=== PATIENT | male | born 1960 | race Caucasian/White ===

== ENCOUNTER 2021-12-30 11:07 | Outpatient (CLI) | payer OTHER, SELFPAY ==
--- OUTSIDE RECORDS SUMMARY | 2021-12-30 08:24 | XMS_ITS | Encounter Summary ---
:1960 Author Reason for Visit Frequency/Urgency of Urination; New Nadia ent Visit Assessment and Plan Assessment Note 60 year old male with benign prostatic hyperplasia with lower urinary tract symptoms 1. Lower urinary tract symptoms ? urinalysis, dipstick 2. Screening for malignant neoplasm of prostate ? prostate specific Ag, serum or plasma Discussion Note Benign prostatic hyperplasia with lower urinary tract symptoms: I had a long discussion with the patient regarding his symptom severity and his findings from both his imaging and cystoscopy. We first discussed continued medical the rapy with alpha-blockade with or without the addition of finasteride 5 mg daily. We discussed expectations in terms of symptom improvement with combination medical therapy as outlined by the MTOPS trial. We then discussed minimally invasive pro cedures done in the office under local anesthesia or monitored anesthesia care in the operating room, notably the Rezum, Urolift, and iTind procedures. We discussed the technical aspects of deirdre bardales Rezum procedure. I informed him this procedure is done in the office under a clayton-prostatic block. We then discussed risks such as bleeding, urinary tract infec tion, injury to the bladder/urethra/sphi ncter, risk of need for retreatment, and postoperative urinary retention. We also discussed it is not uncommon for patients to have worsening irritative voiding s ymptoms for 3-4 weeks following the proc edure. We discussed that a temporary catheter would be left in place following the procedure. We discussed expectations in terms of ou tcomes as outlined by recent 5-year data including a 47% reduction in IPSS and 43% improvement in [id number] measures as well as expected surgical retreatment rates (4.4%). We then discussed the Urolift procedure. This is similarly done under a clayton- prostatic block. We did discuss technical limitations and exclusionary criteria including presence of a median lobe and gland size limitations. We discussed the Urol ift implants are permanent. We covered the risks as well including bleeding, infection, expected post-procedural irritative symptoms, need for retreatment, and injury to surrounding structures. We discussed expectations in terms of ou tcomes as outlined by recent 5-year data including a 36% reduction in IPSS and expected retreatment rate (13.6%). We then touched on the iTind procedure. We discussed 3-year outcomes regarding peak flow rates, bladder emptying, and durability. We discussed the device would be placed under monitored anesthetic care and that he would have a string coming out through the urethra. The device would then be removed in the office after 1 week's time. We discussed that none of these procedur es has been demonstrated to cause de rui erectile dysfunction or ejaculatory dysfunction. We then discussed surgical outlet proced ures done under anesthesia including bi- polar transurethral resection of prostate and transurethral laser vaporization of prostate We discussed the technical aspects of th aries two procedures and that ultimately the goal is the same. We discussed equivalency of the procedures as outlined by the [place] trial. We then discussed the as sociated risks including bleeding requir ing transfusion, urinary tract infection, injury to the bladder/ureteral orifices/urinary sphincter, urethral stricture formation, anesthetic risks (CVA/DVT/PE/SD ), postoperative urinary retention, and expected durability of treatment with anticipated retreatment rate. He would like to think on this and will let me know what he would like to do. Patient educational handouts: No information available. Plan of Care Reminders Provider Appointments None recorded. ? ? Lab Urinalysis, Dipstick 11/20/2021 [facility] ? Prostate Specific Ag, 11/20/2021 [facility] Serum or Plasma Lab Referral None recorded. ? ? Procedures None recorded. ? ? Surgeries None recorded. ? ? Imaging None recorded. ? ? Medications Name Start Date ? ? amlodipine 10 mg-atorvastatin 10 mg tablet ? 10mg/10mg 1/day amlodipine 5 mg tablet ? TAKE 1 TABLET BY MOUTH EVERY DAY atorvastatin 10 mg tablet ? TAKE 1 TABLET BY MOUTH EVERY DAY AT BEDTIME levothyroxine ? 175mcg 1/day levothyroxine 150 mcg tablet ? TAKE 1 TABLET BY MOUTH EVERY OTHER DAY ALTERNATING WI TH 175MCG TABS levothyroxine 175 mcg tablet ? TAKE 1 TABLET BY MOUTH EVERY OTHER DAY ALTERNATING WI TH 150MCG TABS metoprolol succinate ER 25 mg tablet,extended release 24 hr ? TAKE 1 TABLET BY MOUTH EVERY DAY prednisone 20 mg tablet ? TAKE 1 TABLET BY MOUTH TWICE A DAY tamsulosin 0.4 mg capsule ? TAKE 1 CAPSULE BY MOUTH EVERY DAY warfarin 10 mg tablet ? 10mg 1/day Medications Administered None recorded. Vitals Height Weight BMI 6 ft 235 lbs 31.9 kg/m2 Results Lab Results Date Name Specimen Result Interpretation Description Value Range Status Address ? 11/20/2021 Urinalysis, UR ? Color yellow yellow Final [place] Dipstick [facility]: [address] [address], [place] ? ? UR ? Appearance clear clear Final [place] [facility]: [address] [address], [place] ? ? UR ? Glucose negative negative Final [place] [facility] mg/dL mg/dL [facility]: [address] [place] [address], [place] ? ? UR ? Bilirubin negative negative Final [place] [facility]: [address] ? ? UR ? Ketones negative negative Final [place] [facility] mg/dL mg/dL [facility]: [address] ? ? UR ? Sp. [place] >=1.030 1.010-1.0 Final [place] [facility]: [address] ? ? UR ? pH -[facility] 5.0 5.0-8.0 Final [place] [facility]: [address] ? ? UR ? Protein negative negative Final [place] [facility] mg/dL mg/dL [facility]: [address] [address], [place] ? ? UR ? Urobilinogen 0.2 normal Final [place] [facility]: [address] [address], [place] ? ? UR ? Nitrites negative negative Final [place] [facility]: [address] [address], [place] ? ? UR ABNORMAL Blood trace-int negative Final [place] [facility] act [facility]: [address] ? ? UR ? Leukocytes negative negative Final [place] [facility]: [address] [address], [place] ? ? UR ? Performed by aaron Pennington ? Final [place] [facility]: [address] [facility], [place] ? ? UR ? Total Urine 40 /mL ? Final [place] Volume (mL) [facility]: [address] [facility], [place] 11/20/2021 Prostate BLDV ? PSA, Total 3.66 0.00-4.00 Fin al [place] Specific Ag, NG/mL NG/mL Urol ogy - Serum or [facility] Plasma Lab: [address] [facility], [place] Allergies Code Code System Name Reaction Severity Onset 2230 RxNorm Cephalexin ? ? ? Notes: Sulfa Problems Name Status Onset Date Source ? Juan Hematuria Active 09/07/2018 History Increased Frequency of Urination Active 09/07/2018 History Finding of Desire for Urination Active 09/07/2018 History Procedures Date Name Performed by ? 09/22/2018 Cystoscopy Information not avai lable Notes: 09/22/2018 - CYSTOSCOPY 09/22/2018 Us Urine Capacity Measure Information no t available Notes: 09/22/2018 - US URINE CAPACITY MEASURE 09/07/2018 Us Urine Capacity Measure Information no t available Notes: 09/07/2018 - US URINE CAPACITY MEASURE 04/09/2017 Prp I/sarah Init Reduc >5 Yr Information not available Notes: 04/09/2017 - PRP I/SARAH INIT RE KEARA >5 YR 12/23/2014 Colonoscopy Thru Stoma Spx Information n ot available Notes: 12/23/2014 - COLONOSCOPY THRU S ANDRIY SPX ? Hernia Repair W/mesh Information not josé miguel ilable Notes: Hernia Repair ? Removal of Sperm Duct(s) Information not available Notes: Vasectomy Notes: Other surgeries: Us urine capac ity measure, Us urine capacity measure, Colonoscopy thru stoma spx and Prp i/sarah init reduc >5 yr HN - Patient indicated: Prp i/sarah init reduc >5 yr is not accurate. Vaccine List Vaccine Type COVID-19 (SARS-COV-2) vaccine, unspecifi ed 07/19/2021 influenza, unspecified formulation 02/04/2021 Social History Tobacco Smoking Status Never Smoker What is your level of alcohol consumption? Occasional Marital status Has tobacco cessation counseling been provided? Y Do you or have you ever used smokeless tobacco? Never used s mokeless tobacco On what date was tobacco cessation counseling 11/20/2021 provided? How much tobacco do you chew? none What was the date of your most recent tobacco 11/20/2021 screening? Do you or have you ever used e-cigarettes or Never used elec tronic cigarettes vape? Do you or have you ever used any other forms of N tobacco or nicotine? What is your level of caffeine consumption? Moderate Do you use any illicit or recreational drugs? N Race White What is your relationship status? Family History Relation Problem Onset Age of Age Notes Mother Family history of cancer of (No Information) N/A (No Notes) colon Father Family history of prostate 45 N/A ( No Notes) cancer Functional Status Unknown. Past Encounters 11/20/2021 Lower Urinary Tract Symptoms; Screening for Malignant Neoplasm of Prostate Theodore Hercules MD: [address] [place] [address], [address], [place] [address], Ph. History of Present Illness Note: <div>This is a 60 year old male who is here for the evaluation and management of benign prostatic hyperplasia with lower urinary tract symptoms.</div><div>
</div><div>He has been struggling with worsening urgency and frequency for the last 5 years.</div><div>This is particularly bothersome at night.</div><div>He denies gross hematuria.</div><div>There is no history of recurrent urinary tract infections.</div><div>There is no history of urinary retention.</div><div>He is currently taking tamsulosin 0.4 mg daily and saw krystian.</div><div>He notices very mild benefit from this.</div> <div>
</div><div>He has a history of gross hematuria in 2018.</div><div>He underwent an office cystoscopy with Dr. Nieto in 2018 which showed bilobar hyperplasia without an elevated bladder neck.</div><div>Prostate volume: ~40 mL.</div><div>
</div><div>He is participating in prostate cancer screening.</div><div>His most recent prostate specific antigen was 2.98 ng/mL (10/12/2017)</div> Review of Systems ? Comprehensive General Adult ROS Reported By: Patient Cardiovascular: Cardiovascular: no chest [place] n, no palpitations Respiratory: Respiratory: no cough, no sh ortness of breath Gastrointestinal: Gastrointestinal: no abdomin al pain, no nausea, no vomiting, no constipation, no GERD; no fr equent diarrhea Genitourinary: Genitourinary: no difficulty urinating, urinary loss of control; no testicular: pain, no testicu lar: lump, no penile: lesion, no dysuria, no change in urinar y stream, no hematuria, incontinence, Physical Exam ? Notes: <div>General: Well nourished . Appears in good health. No acute distress.</div><div>Neuro: A wake, alert, and oriented x 3. No focal neurologic signs. Motor function and se nsation grossly intact.</div><div>Psych: Mood is appropriate. Good judgement. </div><div>Lungs: No dyspnea.</div><div>Abdomen: Soft, not distended</div><di v>Genitalia: Normal circumcised penis. No lesions. The meatus is orthotopic in location and located at the tip of the glans. Scrotum is healthy and well developed. The testis are down. There are no masses. There is no tenderne ss. The vasa are palpable bilaterally.</div><div>Digit al rectal examination: 40 grams, smooth</div><div>Extremities : Warm and well perfused. Moves all four extremities equally.</div><d iv>Skin: No edema.</div>
--- OUTSIDE RECORDS SUMMARY | 2021-12-30 08:24 | XMS_ITS ---
:1960 Author Care Team Providers Name Role Phone Carlita Herculesnaheed Dolan Primary Care Provider Unavailable Allergies Code Code System Name Reaction Severity Status Onset 2230 RxNorm Cephalexin ? ? Active ? Notes: Sulfa Medications Name Status Start Date Stop Date ? ? amlodipine 10 mg-atorvastatin 10 mg tablet Active ? Not available 10mg/10mg 1/day amlodipine 5 mg tablet Active ? Not avail able TAKE 1 TABLET BY MOUTH EVERY DAY atorvastatin 10 mg tablet Active ? Not av ailable TAKE 1 TABLET BY MOUTH EVERY DAY AT BEDTIME levothyroxine Active ? Not available 175mcg 1/day levothyroxine 150 mcg tablet Active ? Not available TAKE 1 TABLET BY MOUTH EVERY OTHER DAY ALTERNATING WITH 175MCG TABS levothyroxine 175 mcg tablet Active ? Not available TAKE 1 TABLET BY MOUTH EVERY OTHER DAY ALTERNATING WITH 150MCG TABS metoprolol succinate ER 25 mg tablet,extended release 24 hr Acti ve ? Not available TAKE 1 TABLET BY MOUTH EVERY DAY prednisone 20 mg tablet Active ? Not avai lable TAKE 1 TABLET BY MOUTH TWICE A DAY tamsulosin 0.4 mg capsule Active ? Not av ailable TAKE 1 CAPSULE BY MOUTH EVERY DAY warfarin 10 mg tablet Active ? Not availa ble 10mg 1/day Problems Name Status Onset Date Source ? [...] init reduc >5 yr is not accurate. Results Lab Results Date Name Specimen Result Interpretation Description Value Range Status Address ? 11/20/2021 Urinalysis, UR ? Color yellow yellow Final [place] [facility] [facility]: [address] [address], [place] ? ? UR ? Appearance clear clear Final [place] [facility]: [address] [address], [place] ? ? UR ? Glucose negative negative Final [place] [facility] mg/dL mg/dL [facility]: [address] [address], [place] ? ? UR ? Bilirubin negative negative Final [place] [facility]: [address] [address], [place] ? ? UR ? Ketones negative negative Final [place] [facility] mg/dL mg/dL [facility]: [address] [address], [place] ? ? UR ? Sp. [place] >=1.030 1.010-1.0 Final [place] [facility]: [address] [address], [place] ? ? UR ? pH -[facility] 5.0 5.0-8.0 Final [place] [facility]: [address] [address], [place] ? ? UR ? Protein negative negative Final [place] [facility] mg/dL mg/dL [facility]: [address] [address], [place] ? ? UR ? Urobilinogen 0.2 normal Final [place] [facility]: [address] [address], [place] ? ? UR ? Nitrites negative negative Final [place] [facility]: [address] [address], [place] ? ? UR ABNORMAL Blood trace-int negative Final [place] [facility]: [address] [address], [place] ? ? UR ? Leukocytes negative negative Final [place] [facility]: [address] [place] [address], [place] ? ? UR ? Performed by aaron Pennington ? Final [place] [facility]: [address] [place] [address], [place] ? ? UR ? Total Urine 40 /mL ? Final [place] Volume (mL) [facility]: [address] [place] [address], [place] 11/20/2021 Urinalysis, ? U-WBC 0 - 2 0 - 2 Final [place] Microscopic [hpf] [hpf] Urol[facility] - [facility]: [address] [place] [address], [place] ? ? ? U-RBC 0 - 2 0 - 2 Final [place] [hpf] [hpf] [facility]: [address] [place] [address], [place] ? ? ? Bacteria negative negative Final [place] [hpf] [hpf] [facility]: [address] [place] [address], [place] ? ? ? Squamous Epi negative negative, Final [place] /lpf small [facility]rology - /lpf [facility]: [address] [place] [address], [place] 11/20/2021 Prostate BLDV ? PSA, Total 3.66 0.00-4.00 Fin al [place] Specific Ag, NG/mL NG/mL [facility] - Serum or [facility]: [address] [place] [address] Past Encounters 11/20/2021 Lower Urinary Tract Symptoms; Screening for Malignant Neoplasm of Prostate Theodore Hercules MD: [address] [place] [address], [facility] [address], [place] [address], Ph. Social History Tobacco Smoking Status Never Smoker Vaccine List Vaccine Type COVID-19 (SARS-COV-2) vaccine, unspecifi ed 07/19/2021 influenza, unspecified formulation 02/04/2021 Plan of Care Reminders Provider Appointments None recorded. ? ? Lab None recorded. ? ? Referral None recorded. ? ? Procedures None recorded. ? ? Surgeries None recorded. ? ? Imaging None recorded. ? ? Vitals Height Weight BMI 6 ft 235 lbs 31.9 kg/m2
[2021-12-30 13:53] LABS: Cholesterol* 199 mg/dL (90-199)
[2021-12-30 13:54] LABS: HDL Cholesterol* 59 mg/dL (>=40); LDL Cholesterol Calculated 125 mg/dL (<100); Triglycerides* 76 mg/dL (40-149)
[2021-12-30 14:14] LABS: PSA Screen* 3.83 ng/mL (0.10-4.00)
[2022-01-02 12:50] LABS: Albumin* 4.2 g/dL (3.3-5.0)
[2022-01-02 12:53] LABS: Alkaline Phosphatase* 39 U/L (40-150); Aspartate Amino Transferase* 44 U/L (12-35); Bilirubin Direct* 0.3 mg/dL (0.0-0.5); Bilirubin Total* 0.8 mg/dL (0.1-1.5); Total Protein* 7.3 g/dL (6.0-8.3)
[2022-01-02 12:54] LABS: Alanine Aminotransferase* 43 U/L (4-50)
== END 2021-12-30 11:08 | disposition home or self-care (01) ==
PROVIDERS: PCP Family Medicine; Visit Provider Family Medicine
DX: Z00.00 Encounter for general adult medical examination without abnormal findings (principal); E78.5 Hyperlipidemia, unspecified; Z12.5 Encounter for screening for malignant neoplasm of prostate; Z13.29 Encounter for screening for other suspected endocrine disorder
CPT/HCPCS: 80061; 80076; 84153; 84443

== ENCOUNTER 2022-02-25 19:32 | Outpatient (CLI) | payer OTHER, SELFPAY ==
--- OUTSIDE RECORDS SUMMARY | 2022-02-25 19:34 | XMS_ITS | Clinical Summary ---
:1960 Author Organization [facility] [place] [address] Care Team Providers Name Role Phone Gian Barron MD Primary Care Provider Allergies Active Allergy Reactions Severity Noted Date Comments Sulfa (Sulfonamide Antibiotics) Rash 9 Medications Medication Sig Dispensed Refills Start Date End Date Status metoprolol succinate Take 1 tablet by 90 tablet 3 02/15/2019 Active (TOPROL XL) 25 mg mouth once Sustained-Release daily. tabletIndications: Thoracic aortic aneurysm without rupture levothyroxine Take 1 tablet by 0 04/07/2019 Active (SYNTHROID) 175 mcg mouth before tablet breakfast. tamsulosin (FLOMAX) 0.4 Take 1 capsule 0 04/07/2019 Active mg capsule by mouth once daily after a meal. atorvastatin (LIPITOR) Take 10 mg by 4 02/23/2019 Active 10 mg tablet mouth at bedtime. amLODIPine (NORVASC) 5 Take 1 tablet by 90 tablet. 0 1 Active mg tabletIndications: mouth once Thoracic aortic daily. Needs [facility] aneurysm without appt for further rupture refills levothyroxine Take 150 mcg by 0 05/07/2020 Active (SYNTHROID) 150 mcg mouth once tablet daily. warfarin (COUMADIN) 10 Based in INR 0 02/21/2021 Active mg tablet Active Problems Problem Noted Date Adenomatous colon polyp 04/12/2019 Overview: Colonoscopy 04/2019 polyp, repeat in 5 ye ars Social History Tobacco Use Types Packs/Day Years Used Date Never Smoker Smokeless Tobacco: Never Used Alcohol Use Standard Drinks/Week Comments Yes 0 (1 standard drink = 0.6 oz pure alcoho l) occ. Alcohol Habits Answer Date Recorded How often do you have a drink containing alcohol? Not asked How many drinks containing alcohol do you have on a typical Not asked day when you are drinking? How often do you have six or more drinks on one occasion? No t asked Comment: occ. 02/21/2021 Sex Assigned at Date Recorded Male 03/15/2021 1:47 PM [employer] Obstetrics History Last Filed Vital Signs Vital Sign Reading Time Taken Comments Blood Pressure 120/84 02/25/2021 8:42 AM [employer] Pulse 72 02/25/2021 8:42 AM [employer] Temperature - - Respiratory Rate - - Oxygen Saturation 96% 02/25/2021 8:42 AM [employer] Inhaled Oxygen Concentration - - Weight 108.4 kg (239 lb) 02/25/2021 8:42 AM [employer] Height 182.9 cm (6') 02/25/2021 8:42 AM [employer] Body Mass Index 32.41 02/25/2021 8:42 AM [employer] Plan of Treatment Upcoming Encounters Date Type Specialty Care Team Description 03/26/2022 Orders Only 03/26/2022 Office Visit Cesario Olguin MD [address] [place] [address] [phone] (Wo rk) Health Maintenance Due Date Last Done Comments Tdap 12/23/1970 Depression screening for age 12+ 1971 HIV for age 15-65 12/23/1974 Hepatitis C screening for age 18-79 12/23/1977 Tetanus booster 1979 Lipids for age 45-75 12/23/2004 Zoster (shingles) series for age 50+ 12/23/2009 (1 of 2) COVID-19 vaccine series (4 - Booster 04/04/2021 02/07/2021, 07/14/2020, for Pfizer series) 06/23/2020 Influenza for age 50-64 12/05/2021 BMI (ht and wt on same day) for age 1102/25/2022 02/25/2021, 04/15/2019 18+ Colonoscopy through age 75 04/07/2024 04/07/2019, 0 Results Not on filefrom Last 3 Months Insurance Payer Benefit Plan / Subscriber ID Effective Dates Phone Addre ss Type Group [employer] [id number] 2006-Susan [id number] t [place] [id number] [address] [employer] Retail Self 1960 [id number] (Home) [place] [address] Care Teams Spinal Surgeon Relationship Specialty Start Date End Date Gian Barron MD PCP - General Family Practice 09/14/[address] [place] [address]
--- OUTSIDE RECORDS SUMMARY | 2022-02-25 19:34 | XMS_ITS ---
:1960 Author Care Team Providers Name Role Phone Carlita Herculesncer Magdaleno Primary Care Provider Unavailable Allergies Code Code [...] mg tablet Active ? Not av ailable 10 MG ORALLY EVERY DAY AT BEDTIME ciprofloxacin 500 mg tablet Active ? Not available TAKE 1 TABLET BY MOUTH NEEDED (1 HR PRIOR TO REZUM PROCEDURE ) diazepam 5 mg tablet Active ? Not availab le TAKE 1 TABLET BY MOUTH NEEDED (1 HR PRIOR TO REZUM PROCEDURE ) levothyroxine Active ? Not available 175mcg 1/day levothyroxine 150 mcg tablet Active ? Not available TAKE 1 TABLET BY MOUTH EVERY OTHER DAY ALTERNATING WITH 175 MCG DOSE levothyroxine 175 mcg tablet Active ? Not available TAKE 1 TABLET BY MOUTH EVERY OTHER DAY ALTERNATING WITH 150 MCG metoprolol succinate ER 25 mg tablet,extended release 24 hr Acti ve ? Not available TAKE 1 TABLET BY MOUTH EVERY DAY prednisone 20 mg tablet Active ? Not avai lable TAKE 1 TABLET BY MOUTH TWICE A DAY tamsulosin 0.4 mg capsule Active ? Not av ailable TAKE 1 CAPSULE BY MOUTH EVERY DAY warfarin 10 mg tablet Active ? Not availa ble TAKE 1 TABLET BY MOUTH EVERY DAY Problems Name Status Onset Date Source ? [...] [facility]: [address] [address], [place] ? ? UR ? Appearance clear clear Final [place] [facility]: [address] [address], [place] ? ? UR ? Glucose negative negative Final [place] [facility] mg/dL mg/dL [facility]: [address] [address], [place] ? ? UR ? Bilirubin negative negative Final [place] [facility]: [address] [address], [place] ? ? UR ? Ketones negative negative Final [place] [facility] mg/dL mg/dL [facility]: [address] [address], [place] ? ? UR ? Sp. [place] >=1.030 1.010-1.0 Final [place] [facility]: [address] [address], [place] ? ? UR ? pH -[facility] 5.0 5.0-8.0 Final [place] [facility]: [address] [address], [place] ? ? UR ? Protein negative negative Final [place] [facility] mg/dL mg/dL [facility]: [address] [address], [place] ? ? UR ? Urobilinogen 0.2 normal Final [place] [facility]: [address] [address], [place] ? ? UR ? Nitrites negative negative Final [place] [facility]: [address] [facility], [place] ? ? UR ABNORMAL Blood trace-int negative Final [place] [facility]: [address] [facility], [place] ? ? UR ? Leukocytes negative negative Final [place] [facility]: [address] [address], [place] ? ? UR ? Performed by aaron Pennington ? Final [place] [facility]: [address] [facility], [place] ? ? UR ? Total Urine 40 /mL ? Final [place] Volume (mL) [facility]: [address] [place] [address], [place] 11/20/2021 Urinalysis, ? U-WBC 0 - 2 0 - 2 Final [place] Microscopic [hpf] [hpf] [facility]: [address] [address], [place] ? ? ? U-RBC 0 - 2 0 - 2 Final [place] [hpf] [hpf] [facility]: [address] [address], [place] ? ? ? Bacteria negative negative Final [place] [hpf] [hpf] [facility]: [address] [address], [place] ? ? ? Squamous Epi negative negative, Final [place] /lpf small [facility]rology - /lpf [facility]: [address] [place] [address] 11/20/2021 Prostate BLDV ? PSA, Total 3.66 0.00-4.00 Fin al [place] Specific Ag, NG/mL NG/mL [facility] - [facility] or [facility]: [address] [place] [address] Past Encounters 11/20/2021 Lower Urinary Tract Symptoms; Screening for Malignant Neoplasm of Prostate Theodore Hercules MD: [address] [facility] [address], [place] [address], Ph. Social History Tobacco Smoking Status Never [...]
--- NOTE | 2022-03-04 11:38 | W.PM.SLEEP ---
Sleep Study Details Details Interpreting Provider: Jose Blanc MD Date of Sleep Study: 02/25/22 Sleep Study Details: STUDY TYPE:? Home ? BMI:? 32.7 ORDERING PROVIDER:? Nia INDICATION:? Concerns about sleep apnea ? SLEEP SUMMARY:? 440.7 minutes monitored RESPIRATORY SUMMARY:? AHI 7.8, supine 23.4, prone 3.5, left lateral 7.2, right lateral 6.5 Noted the oximeter was not functioning during this study and therefore hypopneas were not recorded. This means this that the AHI is likely an underestimate PERIODIC LIMB MOVEMENTS OF SLEEP:? Not recorded CARDIAC:? Not recorded IMPRESSION:? Study marred by lack of cardiac an oximeter monitoring. Nonetheless demonstrated mild obstructive sleep apnea with supine position dependency. This is likely an underestimate of the true severity of the patient's sleep apnea RECOMMENDATION: Would recommend a repeat study. Alternatively could start AutoSet CPAP at a pressure of 4-17
== END 2022-02-25 19:33 | disposition home or self-care (01) ==
LOC: SLEEP 19:33
PROVIDERS: PCP Family Medicine; Visit Provider Otolaryngology
DX: G47.33 Obstructive sleep apnea (adult) (pediatric) (principal)
CPT/HCPCS: 95806

== ENCOUNTER 2022-03-19 19:30 | Outpatient (CLI) | payer OTHER, SELFPAY ==
--- OUTSIDE RECORDS SUMMARY | 2022-03-19 19:33 | XMS_ITS | Clinical Summary ---
:1960 Author Organization [facility] [place] [address] Care Team Providers Name Role Phone Gian [...] Tobacco Use Types Packs/Day Years Used Date Smoking Tobacco: Never Smokeless Tobacco: Never Alcohol Use Standard Drinks/Week Comments Yes 0 (1 standard drink = 0.6 oz pure alcoho l) occ. Sex Assigned at Date Recorded Male 03/15/2021 1:47 PM THEATER TECHNICIAN Obstetrics History Last Filed Vital Signs Vital Sign Reading Time Taken Comments Blood Pressure 120/84 02/25/2021 8:42 AM THEATER TECHNICIAN Pulse 72 02/25/2021 8:42 AM THEATER TECHNICIAN Temperature - - Respiratory Rate - - Oxygen Saturation 96% 02/25/2021 8:42 AM THEATER TECHNICIAN Inhaled Oxygen Concentration - - Weight 108.4 kg (239 lb) 02/25/2021 8:42 AM THEATER TECHNICIAN Height 182.9 cm (6') 02/25/2021 8:42 AM THEATER TECHNICIAN Body Mass Index 32.41 02/25/2021 8:42 AM THEATER TECHNICIAN Plan of Treatment Upcoming Encounters Date Type Specialty Care Team Description 03/26/2022 Orders Only 03/26/2022 Office Visit Cesario Olguin MD [address] [place] [address] [phone] (Wo rk) Health Maintenance Due Date Last [...] Addre ss Type Group [employer] [id number] 2006-Presen [id number] t [place] [address] Gavin Kaplan Retail Self 1960 [id number] (Home) [place] [address] Care Teams Products Mechanical Design Engineer Relationship Specialty Start Date End Date Gian Barron MD PCP - General Family Practice 09/14/[address] [place] [address]
--- OUTSIDE RECORDS SUMMARY | 2022-03-19 19:33 | XMS_ITS ---
[...] -[facility]: [address] [address], [place] ? ? UR ? Appearance clear clear Final [place] -[facility]: [address] [address], [place] ? ? UR ? Glucose negative negative Final [place] [facility] mg/dL mg/dL [facility]: [address] [address], [place] ? ? UR ? Bilirubin negative negative Final [place] [facility]: [address] [address], [place] ? ? UR ? Ketones negative negative Final [place] [facility] mg/dL mg/dL [facility]: [address] [address], [place] ? ? UR ? Sp. [place] >=1.030 1.010-1.0 Final [place] -[facility] 25 [facility]: [address] [address], [place] ? ? UR ? pH -[facility] 5.0 5.0-8.0 Final [place] [facility]: [address] [address], [place] ? ? UR ? Protein negative negative Final [place] -[facility] mg/dL mg/dL [facility]: [address] [address], [place] ? ? UR ? Urobilinogen 0.2 normal Final [place] [facility]: [address] [address], [place] ? ? UR ? Nitrites negative negative Final [place] [facility]: [address] [facility] [place] [facility] [address], [place] ? ? UR ABNORMAL Blood trace-int negative Final [place] [facility] [address] [facility] [place] [facility] [address], [place] ? ? UR ? Leukocytes negative negative Final [place] [facility]: [address] [address], [place] ? ? UR ? Performed by aaron Pennington ? Final [place] [facility]: [address] [facility] [place] [facility] [address], [place] ? ? UR ? Total Urine 40 /mL ? Final [place] Volume (mL) [facility]: [address] [address], [place] 11/20/2021 Urinalysis, ? U-WBC 0 - 2 0 - 2 Final [place] Microscopic [hpf] [hpf] [facility]: [address] [address], [place] ? ? ? U-RBC 0 - 2 0 - 2 Final [place] [hpf] [hpf] [facility]: [address] [address], [place] ? ? ? Bacteria negative negative Final [place] [hpf] [hpf] [facility]: [address] [address], [place] ? ? ? Squamous Epi negative negative, Final [place] /lpf small Urology - /lpf [facility]: [address] [address], [place] 11/20/2021 Prostate BLDV ? PSA, Total 3.66 0.00-4.00 Fin al [place] Specific Ag, NG/mL NG/mL [facility]rol [facility] - Serum [facility]: [address] Past Encounters Encounter Date Diagnosis Provider 11/20/2021 Lower Urinary Tract Symptoms; Theodore Hercules MD: [address] [place] [facility] [address] , [address], [place], [place] Prostate [address], Ph. [phone] Social History Tobacco Smoking Status Never Smoker [...]
--- NOTE | 2022-04-15 08:50 | W.PM.SLEEP ---
Sleep Study Details Details Interpreting Provider: Jose Blanc MD Date of Sleep Study: 03/19/22 Sleep Study Details: STUDY TYPE:? Home sleep study. Note this is a repeat study as the oximetry and pulse probe was not working on previous study ? BMI:? 32.7 ORDERING PROVIDER:? Nia INDICATION:? Concerns about sleep apnea ? SLEEP SUMMARY:? Vonda 65.5 minutes monitored RESPIRATORY SUMMARY:? AHI 19.5 central index 0.1 Prone AHI 24, left lateral AHI 7.2 Low oxygen 79 32.8 % of study oxygen less than 90%, 1.1% of study oxygen less than 85% Snoring 9.4% PERIODIC LIMB MOVEMENTS OF SLEEP:? Not recorded CARDIAC:? Range 29 to 171, mean 48.6 IMPRESSION:? Both bradycardia and tachycardia were noted. Patient will be instructed to follow up with his reimbursement consultant. He has known cardiac problems Moderate obstructive sleep apnea worse in the prone position. Treatment options would include dental appliance versus CPAP. If he does do a dental appliance he should have a repeat study done. RECOMMENDATION: []
== END 2022-03-19 19:31 | disposition home or self-care (01) ==
PROVIDERS: PCP Family Medicine; Visit Provider Otolaryngology
DX: G47.33 Obstructive sleep apnea (adult) (pediatric) (principal)
CPT/HCPCS: 95806

== ENCOUNTER 2023-01-29 09:12 | Outpatient (CLI) | payer OTHER, SELFPAY | END 2023-01-29 09:13 | disposition home or self-care (01) | PROVIDERS: PCP Family Medicine; Visit Provider Family Medicine | DX: Z00.00 Encounter for general adult medical examination without abnormal findings (principal); E78.5 Hyperlipidemia, unspecified; E03.9 Hypothyroidism, unspecified; I10 Essential (primary) hypertension; R79.89 Other specified abnormal findings of blood chemistry; N40.0 Benign prostatic hyperplasia without lower urinary tract symptoms; Z79.01 Long term (current) use of anticoagulants | CPT/HCPCS: 80053; 80061; 84153; 84443 ==

== ENCOUNTER 2024-02-09 09:09 | Outpatient (CLI) | payer OTHER, SELFPAY ==
--- OUTSIDE RECORDS SUMMARY | 2024-02-09 09:12 | XMS_ITS | Referral Summary ---
Author Organization [facility] Address [address] [place] [address]. [place] [address] Care Team Providers Care Atomic Spectroscopist Name Role Phone Gian Barron MD Primary Care Provider [phone] Zoë Pittman MD Unavailable [phone] Active Problems Problem Noted Date Diagnosed Date Urinary urgency 01/29/2023 Social History Tobacco Use Types Packs/Day Years Used Date Smoking Tobacco: Never Assessed Adolescent Education Answer Date Record ed Getting School Help Needed Not on file 01/29 Sex and Gender Information Value Date Recorded Sex Assigned at Not on file Legal Sex Male 1:24 PM CDT Gender Identity Not on file Sexual Orientation Not on file Plan of Treatment Upcoming Encounters Date Type Department Care Team (Late st Contact Info) Description 04/26/2024 10:00 AM MANAGER CREATIVE SERVICES Office Visit [address] [place] [phone] Zoë Pittman MD [address] [place] [address] [id number] Insurance [employer] COMMERCIAL [place] [employer] COMMERCIAL Care Teams Atomic Spectroscopist Relationship Specialty Start Date End Date Gian Barron MD [facility] [address] [address] PCP - General Family Medicine 01/08/23 Zoë Pittman MD [address], [facility] [address] [place] [address] Allergy & Immunology 08/05/23
--- OUTSIDE RECORDS SUMMARY | 2024-02-09 09:12 | XMS_ITS | Clinical Summary ---
Author Organization [facility] Address [place], [place] [address] Care Team Providers Care Line Person Name Role Phone Gian Barron MD Primary Care Provider [phone] Allergies Active Allergy Reactions Criticality Noted Date Comments Sulfa (Sulfonamide Antibiotics) Rash 02/04 Medications Medication Sig Dispensed Refills Start Date End Date Status metoprolol succinate (TOPROL XL) 25 mg Sustained-Release tabletIndications:Th oracic aortic aneurysm without rupture (HC) Take 1 tablet by mouth once daily. 90 tablet 3 02/15/2019 Active levothyroxine (SYNTHROID) 175 mcg tablet Take 1 tablet by mouth before breakfast. 0 04/07/2019 Active tamsulosin (FLOMAX) 0.4 mg capsule Take 1 capsule by mouth once daily after a meal. 0 04/07/2019 Active atorvastatin (LIPITOR) 10 mg tablet Take 10 mg by mouth at bedtime. 4 02/23/2019 Active amLODIPine (NORVASC) 5 mg tabletIndications:Th oracic aortic aneurysm without rupture (HC) Take 1 tablet by mouth once daily. Needs [facility] appt for further refills 90 tablet. 05/29/2020 Active levothyroxine (SYNTHROID) 150 mcg tablet Take 150 mcg by mouth once daily. 05/07/2020 Active warfarin (COUMADIN) 10 mg tablet Based in INR 0 02/21/2021 Active Active Problems Problem Noted Date Diagnosed Date KALYANI (obstructive sleep apnea) 03/25/2023 Adenomatous colon polyp 04/12/2019 Overview (04/12/2019): Colonoscopy 04/2019 polyp, repeat in 5 years Encounters Date Type Department Care Team Description 01/05/2024 Telephone [facility] Centralized Nurse Triage Gian Barron MD Error-please disregard from Last 3 Months Social History Tobacco Use Types Packs/Day Years Used Date Smoking Tobacco: Never Smokeless Tobacco: Never Alcohol Use Standard Drinks/Week Comments Yes 0 (1 standard drink = 0.6 oz pur e alcohol) occ. Social Connections Answer Date Recorded Frequency of Communication with Friends and Fami ly Not on file 04/01/2021 Financial Resource Strain Answer Date R ecorded Difficulty of Paying Living Expenses Not on file 04/01/2021 Difficulty of Paying Living Expenses Not on file 04/01/2021 Sex and Gender Information Value Date Recorded Sex Assigned at Male 03/15/2021 1:47 PM SENIOR STAFF ACCOUNTANT Gender Identity Male 03/15/2021 1:47 PM SENIOR STAFF ACCOUNTANT Sexual Orientation Straight 03/15/2021 1: 47 PM SENIOR STAFF ACCOUNTANT Obstetrics History Last Filed Vital Signs Vital Sign Reading Time Taken Comments Blood Pressure 118/78 03/24/2023 10:18 AM SENIOR STAFF ACCOUNTANT Pulse 71 03/24/2023 10:18 AM SENIOR STAFF ACCOUNTANT Temperature - - Respiratory Rate - - Oxygen Saturation 95% 03/24/2023 10:18 AM SENIOR STAFF ACCOUNTANT Inhaled Oxygen Concentration - - Weight 101.6 kg (224 lb) 03/24/2023 10:18 AM SENIOR STAFF ACCOUNTANT Height 182.9 cm (6') 03/24/2023 10:18 AM SENIOR STAFF ACCOUNTANT Body Mass Index 30.38 03/24/2023 10:18 AM SENIOR STAFF ACCOUNTANT Plan of Treatment Upcoming Encounters Date Type Department Care Team (Late st Contact Info) Description 03/14/2024 11:00 AM SENIOR STAFF ACCOUNTANT Ancillary Procedure [facility] [address] [place] [phone] 03/22/2024 10:00 AM SENIOR STAFF ACCOUNTANT Office Visit [facility] [address] [place] [phone] Cesario Olguin MD [address] [place] [address] Health Maintenance Due Date Last Done Comments Tdap 12/23/1970 Depression screening for age 12+ 1971 HIV for age 15-65 12/23/1974 Hepatitis C screening for age 18-79 12/23/1977 Tetanus booster 1979 Lipids for age 45-75 12/23/2004 Zoster (shingles) series for age 50+ (1 of 2) 12/23/2009 COVID-19 vaccine series ( season) 2023 03/09/2023, 01/28/2022, 08/07/2021, Additional history exists Influenza for age 50-64 12/06/2023 BMI (ht and wt on same day) for age 18+ 03/24/2024 03/24/2023, 03/26/2022, 02/25/2021, Additional history exists Colonoscopy through age 75 04/07/2024 04/07/2019, Pneumococcal series for age 6-64 Aged Out No longer eligible based on patient's age to complete this topic Procedures Procedure Name Priority Date/Time Associated Diagnosis Comments COLONOSCOPY 04/07/2019 10:56 AM SENIOR STAFF ACCOUNTANT from Last 3 Months or Most Recently Relevant to Health Maintenance Results * COLONOSCOPY (04/07/2019 10:56 AM SENIOR STAFF ACCOUNTANT) 04/07/2019 10:5 6 AM SENIOR STAFF ACCOUNTANT Narrative Transcriptions Rohan Castrejon MD - 04/07/2019 12:00 PM CST Patient Name: Gavin Kaplan Procedure Date: 04/07/2019 Gender: Male Date of : 1960 Admit Type: Outpatient Procedure: Colonoscopy Proceduralist: Rohan Castrejon MD , Lorenza Cardenas RN(Nurse) Indications/Pre-Op Diagnosis: Screening in patient at increased risk:Family history of 1st-degree relative withcolorectal cancer before age 60 years, Lastcolonoscopy: March 2014 Medications: Fentanyl 100 micrograms IV, Midazolam 4 mgIV, The level of sedation administered wasmoderate Procedure Description: The patient had risks, benefits and alternatives explained to andgave informed consent. The patient had a stable cardiopulmonary status and judged an adequate candidate for conscious sedation. The PCF-Q290AL [id number] was passed through the anus and advanced tothe cecum, identified by appendiceal orifice and ileocecal valve. The colonoscopy was performed without difficulty. The patient toleratedthe procedure well. The quality of the bowel preparation was good. The ileocecal valve, appendiceal orifice, and rectum were photographed. Complications: No immediate complications. Estimated Blood Loss & Specimen: Estimated blood loss: none. Specimen collected - Yes and sent to Laboratory Findings: The perianal and digital rectal examinations were normal. A 3 mm polyp was found in the ascending colon. The polyp was sessile. The polyp was removed with a cold snare. Resection and retrieval were complete. The exam was otherwise without abnormality on direct and retroflexion views. Impressions/Post-Op Diagnosis: - One 3 mm polyp in the ascending colon, removed with a cold snare. Resected and retrieved. - The examination was otherwise normal on direct and retroflexionviews. Recommendation: - Patient has a contact number available for emergencies. The signsand symptoms of potential delayed complications were discussed with the patient. Return to normal activities tomorrow. Written discharge instructions were provided to the patient. - Resume previous diet. - Continue present medications. - Await pathology results. - Resume Coumadin (warfarin) at prior dose today. Refer to [facility] for further adjustment of therapy. - Repeat colonoscopy in 5 years. Moderate Sedation: Moderate (conscious) sedation was administered by the endoscopy nurse and supervised by the endoscopist. The following parameters were monitored: oxygen saturation, heart rate, respiratory rate, blood pressure, adequacy of pulmonary ventilation and reponse to care. Please refer to the patien'ts medical record flowsheets and nursing notes for moderate sedation details. Total physician intraservice time was 15 minutes. Rohan Castrejon MD 04/07/2019 11:59:53 AM This report has been signed electronically. Note Initiated On: 04/07/2019 10:56 AM Procedure Code(s): --- Professional --- 99054, Colonoscopy, flexible; with removalof tumor(s), polyp(s), or other lesion(s) bysnare technique Diagnosis Code(s): --- Professional --- Z80.0, Family history of malignant neoplasmof digestive organs D12.2, Benign neoplasm of ascending colon CPT copyright 2018 [employer]. All rights reserved. The codes documented in this report are preliminary and upon boat canvas maker installer reviewmay be revised to meet current compliance requirements. Scope In: 11:38:12 AM Scope Withdrawal Time 0 hours 9 minutes 54 seconds Scope Out: 11:51:18 AM Rohan Castrejon MD PROCEDURE ORD from Last 3 Months or Most Recently Relevant to Health Maintenance Care Teams Line Person Relationship Specialty Start Date End Date Gian Barron MD [address] [place] [address] PCP - General Family Practice 01/05/24
--- OUTSIDE RECORDS SUMMARY | 2024-02-09 09:12 | XMS_ITS | Clinical Summary ---
Author Organization [facility] Address [address] [place] [address]. [place] [address] Care Team Providers Care Washer Hand Name Role Phone Gian Barron MD Primary Care Provider [phone] Zoë Pittman MD Unavailable [phone] Active Problems Problem Noted Date Diagnosed [...] st Contact Info) Description 04/26/2024 10:00 AM INFORMATION ARCHITECT Office Visit M [address] [place] [phone] Zoë Pittman MD [address] [place] [address], [address] [address] Health Maintenance Due Date Last Done Comments ADVANCE CARE PLANNING 1960 ANNUAL REVIEW OF HM ORDERS 1960 CT COLONOGRAPHY 1960 FIT 1960 FLEX SIG 1960 GLUCOSE 1960 YEARLY PREVENTIVE VISIT 1960 sDNA (Cologuard) 1960 HIV SCREENING 12/23/1974 HEPATITIS C SCREENING 12/23/1977 LIPID 1999 PHQ-2 (once per calendar year) 2023 COVID-19 Vaccine ( season) 2023 03/09/2023, 01/28/2022, 08/07/2021, Additional history exists INFLUENZA VACCINE (#1) 2023 3, 01/04/2022, 11/27/2021, Additional history exists COLONOSCOPY 12/23/2024 12/23/2014 COLORECTAL CANCER SCREENING 12/23/2024 DTAP/TDAP/TD IMMUNIZATION (2 - Td or Tdap) 10/13/2027 10/12/2017, 08/08/1998 RSV VACCINE (1 - 1-dose 75+ series) 12/23/2034 ZOSTER IMMUNIZATION Completed 05/05/2023, HPV IMMUNIZATION Aged Out No longer e ligible based on patient's age to complete this topic MENINGITIS IMMUNIZATION Aged Out No l onger eligible based on patient's age to complete this topic Pneumococcal Vaccine: Pediatrics (0 to 5 Years) and At-Risk Patients (6 to 64 Years) Aged Out No longer eligible based on patient's age to complete this topic RSV MONOCLONAL ANTIBODY Aged Out No l onger eligible based on patient's age to complete this topic Insurance [id number] [place] [id number] [facility] COMMERCIAL [facility] COMMERCIAL Care Teams Washer Hand Relationship Specialty Start Date End Date Gian Barron MD [facility] [address] [address] PCP - General Family Medicine 01/08/23 Zoë Pittman MD [address], [address] [address] Allergy & Immunology 08/05/23
== END 2024-02-09 09:10 | disposition home or self-care (01) ==
PROVIDERS: PCP Family Medicine; Visit Provider Family Medicine
DX: E03.9 Hypothyroidism, unspecified (principal); E78.5 Hyperlipidemia, unspecified; I10 Essential (primary) hypertension; N40.0 Benign prostatic hyperplasia without lower urinary tract symptoms; Z12.5 Encounter for screening for malignant neoplasm of prostate; Z11.59 Encounter for screening for other viral diseases
CPT/HCPCS: 80048; 80061; 80076; 84443; G0103

== ENCOUNTER 2024-02-16 08:39 | Outpatient (CLI) | payer OTHER, SELFPAY ==
--- OUTSIDE RECORDS SUMMARY | 2024-02-16 08:42 | XMS_ITS | Referral Summary ---
Author Organization [facility] Address [address] [place] [address]. [place] [address] Care Team Providers Care Track Broom Operator Name Role Phone Gian Barron MD Primary Care Provider [phone] Zoë Pittman MD Unavailable [phone] Active Problems Problem Noted Date Diagnosed [...] st Contact Info) Description 04/26/2024 10:00 AM COMMERCIAL ENGINEER Office Visit [address] [place] [phone] Zoë Pittman MD [address] [place] [id number] Insurance [employer] COMMERCIAL [place] [employer] COMMERCIAL Care Teams Track Broom Operator Relationship Specialty Start Date End Date Gian Barron MD [facility] [address] [address] PCP - General Family Medicine 01/08/23 Zoë Pittman MD [address], [facility] [address] [place] [address] Allergy & Immunology 08/05/23
--- OUTSIDE RECORDS SUMMARY | 2024-02-16 08:42 | XMS_ITS | Clinical Summary ---
Author Organization [facility] Address [address] [place] [address]. [place] [address] Care Team Providers Care Cinder Crusher Operator Name Role Phone Gian Barron MD Primary Care Provider Zoë Pittman MD Unavailable [phone] Active Problems Problem Noted Date Diagnosed [...] st Contact Info) Description 04/26/2024 10:00 AM MOBILE APPLICATION DEVELOPER Office Visit M [address] [place] [phone] Zoë Pittman MD [address] [place] [address], [address] [address] Health Maintenance Due Date Last [...] patient's age to complete this topic Insurance [id number] [place] [id number] [facility] COMMERCIAL * Guarantor: Gavin Kaplan Account Type Relation to Patient Date of Phone Billing Address Personal/Family Self [id number] [place] [id number] [facility] COMMERCIAL Care Teams Cinder Crusher Operator Relationship Specialty Start Date End Date Gian Barron MD [facility] [address] [address] PCP - General Family Medicine 01/08/23 Zoë Pittman MD [address], [address] [address] Allergy & Immunology 08/05/23
--- OUTSIDE RECORDS SUMMARY | 2024-02-16 08:42 | XMS_ITS | Clinical Summary ---
Author Organization [facility] Address [place], [place] [address] Care Team Providers Care Financial Planning Adviser Name Role Phone Gian Barron MD Primary Care Provider [phone] Allergies Active Allergy Reactions Criticality Noted Date [...] Type Department Care Team Description 01/05/2024 Telephone [facility] Centralized Nurse Triage Gian Barron MD Error-please [...] Sex Assigned at Male 03/15/2021 1:47 PM SALES SUPPORT SPECIALIST Gender Identity Male 03/15/2021 1:47 PM SALES SUPPORT SPECIALIST Sexual Orientation Straight 03/15/2021 1: 47 PM SALES SUPPORT SPECIALIST Obstetrics History Last Filed Vital Signs Vital Sign Reading Time Taken Comments Blood Pressure 118/78 03/24/2023 10:18 AM SALES SUPPORT SPECIALIST Pulse 71 03/24/2023 10:18 AM SALES SUPPORT SPECIALIST Temperature - - Respiratory Rate - - Oxygen Saturation 95% 03/24/2023 10:18 AM SALES SUPPORT SPECIALIST Inhaled Oxygen Concentration - - Weight 101.6 kg (224 lb) 03/24/2023 10:18 AM SALES SUPPORT SPECIALIST Height 182.9 cm (6') 03/24/2023 10:18 AM SALES SUPPORT SPECIALIST Body Mass Index 30.38 03/24/2023 10:18 AM SALES SUPPORT SPECIALIST Plan of Treatment Upcoming Encounters Date Type Department Care Team (Late st Contact Info) Description 03/14/2024 11:00 AM SALES SUPPORT SPECIALIST Ancillary Procedure [facility] [address] [place] [phone] 03/22/2024 10:00 AM SALES SUPPORT SPECIALIST Office Visit [facility] [address] [place] [phone] Cesario Olguin MD [address] [place] [address] Health Maintenance Due Date Last Done [...] Associated Diagnosis Comments COLONOSCOPY 04/07/2019 10:56 AM SALES SUPPORT SPECIALIST from Last 3 Months or Most Recently Relevant to Health Maintenance Results * COLONOSCOPY (04/07/2019 10:56 AM SALES SUPPORT SPECIALIST) 04/07/2019 10:5 6 AM SALES SUPPORT SPECIALIST Narrative Transcriptions Rohan Castrejon MD - 04/07/2019 [...] adequate candidate for conscious sedation. The PCF-Q290AL [id number] was passed through the anus and advanced [...] 10:56 AM Procedure Code(s): --- Professional --- 54782, Colonoscopy, flexible; with removalof tumor(s), polyp(s), or other lesion(s) bysnare technique Diagnosis Code(s): --- Professional --- Z80.0, Family history of malignant neoplasmof digestive organs D12.2, Benign neoplasm of ascending colon CPT copyright 2018 [employer]. All rights reserved. The codes documented in this report are preliminary and upon wine pasteurizer reviewmay be revised to meet current compliance requirements. Scope In: 11:38:12 AM Scope Withdrawal Time 0 hours 9 minutes 54 seconds Scope Out: 11:51:18 AM Rohan Castrejon MD PROCEDURE ORD from Last 3 Months or Most Recently Relevant to Health Maintenance Care Teams Financial Planning Adviser Relationship Specialty Start Date End Date Gian Barron MD [address] [place] [address] PCP - General Family Practice 01/05/24
--- OUTSIDE RECORDS SUMMARY | 2024-02-16 08:43 | XMS_ITS | Data Portability ---
Author Organization [facility], [facility] Address [address] [place] [address] Care Team Providers Care Brand Marketing Intern Name Role Phone JAIRO RAQUEL Primary Care Provider [phone] Assessment Encounter Date Assessment Date Assessment LastModified by Organization Details LastModified Time 07/31/2022 07/31/2022 61 year old male with benign prostatic hyperplasia with lower urinary tract symptoms here for the Rezum procedure. Not available 07/31/2022 12:45:39 10/31/2022 10/31/2022 This is a 60 year old male with benign prostatic hyperplasia with lower urinary tract symptoms who is now s/p the Rezum procedure. [email or web address] Not available 10/31/2022 11:17:01 01/06/2023 01/06/2023 This is a 62 year old male with benign prostatic hyperplasia with lower urinary tract symptoms who is now s/p the Rezum procedure. [email or web address] Not available 01/06/2023 16:06:44 07/15/2023 07/15/2023 This is a 62 year old male with benign prostatic hyperplasia with lower urinary tract symptoms who is now s/p the Rezum procedure with continued urinary complaints [email or web address] Not available 07/15/2023 16:38:38 Plan of Treatment Reminders Order Date Submit Date Provider Last Modified By Organization Details Last Modified Time Details Appointments ESTABL ISHED 20 2024 11:40A M Ciara Jeffers-OLVIN Lomeli Not available Not available Not available Lab urinal ysis, dipsti ck 2022 023 [facility], [address], [address], [place], [address], 08/21/2022 11:02:23 cultur e, urine 2022 023 [facility], [address], [address], [place], [address], 08/23/2022 11:17:53 urinal ysis, dipsti ck 2022 023 [facility], [address], [address], [place], [address], 10/31/2022 11:47:58 urinal ysis, dipsti ck 2022 023 [facility], [address], [address], [place], [address], 01/06/2023 16:12:31 urinal ysis, micros copic 2022 023 [facility], [address], [address], [place], [address], 07/12/2023 05:00:59 Referral pelvic floor therap y referr al - Please call anahi stephen to ajith le Pelvic Floor Physic al Therap y. Thank you [email or web address] [place] [address]- [place], [address] [place], [address], 01/16/2023 10:33:36 Procedures None record ed. Surgeries None record ed. Imaging None record ed. Medication Orders Pyridi um 200 mg tablet 2022 023 [id number]/Pharmacy #[id number], [address] [facility], [place], [address], 07/12/2023 10:17:20 ciprof loxaci n 500 mg tablet 2022 023 [facility]/Pharmacy #[id number], [address] [place], [address], 10/31/2022 10:49:20 oxybut ynin chlori de ER 5 mg tablet ,exten ded releas e 24 hr 2022 023 [id number]/Pharmacy #[id number], [address] [place], [address], 07/12/2023 10:17:20 tamsul osin 0.4 mg capsul e 2022 023 [id number]/Pharmacy #[id number], [address] [facility], [place], [address], 07/12/2023 10:17:20 trospi um 20 mg tablet 2023 024 jasper [facility]/Pharmacy #[id number], [address] [place], [address], 07/15/2023 16:40:59 Patient TargetsNo targets recorded. Patient Instructions Encounter Date Encounter Id Patient Instructions Last Modified By Organization Details Last Modified Time 07/31/2022 [id number] Benign prostatic hyperplasia with lower urinary tract symptoms: The patient tolerated the Rezum procedure well. A Castro catheter was placed at the conclusion of the procedure which will be removed in the office next week. Catheter teaching was performed, and the patient was supplied with appropriate supplies. We reviewed expected post-procedural symptoms after catheter removal including urgency, frequency, urge urinary incontinence, dysuria, hematospermia, and hematuria. He understands that this may last 4-6 weeks post-procedure. We discussed post-procedural therapies to decrease discomfort. He will begin ibuprofen 600 mg every 8 hours for the next 10 days so long as he has no contraindications to this. A prescription for pyridium was also provided which he may begin if he experiences bothersome dysuria. If he has persistent bothersome symptoms after 2 weeks despite these therapies, he will contact our office to submit a urine culture. If this is negative, a prescription for a Medrol pack will be prescribed to further reduce local inflammation. I will see him back in 3 months for post-void residual and to assess his progress. Not available 07/31/2022 12:45:52 10/31/2022 [id number] BPH: - Discontin ue tamsulosin 0.4 mg daily Overactive bladder (OAB): . -Discussed first-line conservative management including timed voiding, urge suppression strategies, pelvic floor exercises, and avoidance of bladder irritants. -Discussed second-line therapies including pelvic floor physical therapy and OAB medications. -After hearing the options, patient would like to try an OAB medication -rx for oxybutynin 5 mg ER sent to pharmacy. Side effects of oxybutynin were discussed in detail. Potential side effects include dry mouth, constipation and headache. - I will see back in 6 weeks to discuss medication/symptoms jasper Not available 10/31/2022 11:18:22 01/06/2023 [id number] BPH: - Resume tamsulosin 0.4 mg daily since his symptoms worsened when he stopped. Side effects of tamsulosin were discussed in detail. Potential side effects include retrograde ejaculation, intraoperative floppy iris syndrome, dizziness, rhinitis. - We discussed having him undergo a Urocuff study to determine if he is still obstructed. He declines at this time since he would not pursue additional surgical intervention Overactive bladder (OAB): -Reviewed first-line conservative management including timed voiding, urge suppression strategies, pelvic floor exercises, and avoidance of bladder irritants. -He would like to try pelvic floor PT at this time. Referral sent - He will discontinue oxybutynin. If he notices his symptoms worsen off of this medication, he will then call and we will resume it jasper Not available 01/06/2023 16:09:03 07/15/2023 [id number] BPH: - continue tamsulosin 0.4 mg daily - He is due for a PSA check, will obtain prior to his next visit - I have recommended urocuff studies to determine if there is continued obstruction post rezum procedure, which he declines OAB: -Reviewed first-line conservative management including timed voiding, urge suppression strategies, pelvic floor exercises, and avoidance of bladder irritants. -He would like to try an alternative OAB medication. RX for trospium sent to pharmacy. Side effects of trospium were discussed in detail. Potential side effects include dry mouth, constipation and headache. [email or web address] Not available 07/15/2023 16:40:39 Reason for Referral Pelvic Floor Therapy Referra l for Increased frequency of urination Please call patient to schedule Pelvic Floor Physical Therapy. Thank you Referring Physician: Ciara Villar, Urology, Encounter Date: 01/06/2023 Results Created Date Observation Date Name Description Value Unit Range Abnormal Flag Note LastModifiedBy Organization Detail LastModifiedTime 08/22/1908/21/2022 UA WITHO UT MICRO - CS URISC AN blood - uriscan MODERA TE negati ve abnormal Not Available [facility] [address] [facility] [address], [place], [address], 08/21/2022 11:02:23 08/22/19 23 08/21/2022 UA WITHO UT MICRO - CS URISC AN bilirubin - uriscan NEGATI VE mg/dL negati ve Not Available [facility] [address] [facility] [address], [place], [address], 08/21/2022 11:02:23 08/22/19 23 08/21/2022 UA WITHO UT MICRO - CS URISC AN urobilinogen - uriscan NORMAL mg/dL normal Not Available [facility] [address] [facility] [address], [place], [address], 08/21/2022 11:02:23 08/22/19 23 08/21/2022 UA WITHO UT MICRO - CS URISC AN ketones - uriscan NEGATI VE mg/dL negati ve Not Available [facility] [address] [facility] [address], [place], [address], 08/21/2022 11:02:23 08/22/19 23 08/21/2022 UA WITHO UT MICRO - CS URISC AN protein - uriscan 10 mg/dL negati ve abnormal Not Available [facility] [address] [facility] [address], [place], [address], 08/21/2022 11:02:23 08/22/19 23 08/21/2022 UA WITHO UT MICRO - CS URISC AN nitrites - uriscan NEGATI VE negati ve Not Available [facility] [address] [facility] [address], [place], [address], 08/21/2022 11:02:23 08/22/19 23 08/21/2022 UA WITHO UT MICRO - CS URISC AN glucose - uriscan NEGATI VE mg/dL negati ve Not Available [facility] [address] [facility] [address], [place], [address], 08/21/2022 11:02:23 08/22/19 23 08/21/2022 UA WITHO UT MICRO - CS URISC AN pH - uriscan 5.50 5.00-9 .00 Not Available [facility] [address] [facility] [address], [place], [address], 08/21/2022 11:02:23 08/22/19 23 08/21/2022 UA WITHO UT MICRO - CS URISC AN sp. gravity - uriscan 1.02 1.01-1 .03 Not Available [facility] [address] [facility] [address], [place], [address], 08/21/2022 11:02:23 08/22/19 23 08/21/2022 UA WITHO UT MICRO - CS URISC AN leukocytes - uriscan NEGATI VE negati ve Not Available [facility] [address] [facility] [address], [place], [address], 08/21/2022 11:02:23 08/22/19 23 08/21/2022 UA WITHO UT MICRO - CS URISC AN color - uriscan YELLOW lt. yellow ;yello w Not Available [facility] [address] [facility] [address], [place], [address], 08/21/2022 11:02:23 08/22/19 23 08/21/2022 UA WITHO UT MICRO - CS URISC AN clarity - uriscan CLEAR clear Not Available [facility] [address] [facility] [address], [place], [address], 08/21/2022 11:02:23 08/22/19 23 08/21/2022 UA WITHO UT MICRO - CS URISC AN total urine volume (mL) 20 /mL ----- ----- ----- ----- ----- ----- ----- ----- ----- ----- ----- ----- ----- ----- ---- *Vj kay note the follo wing minim um quant ities for addit ional urine testi ng: - Atypi cals: 3 mL - Cytol ogy: 20 mL - GC/CH : 2 mL - FISH: 30 mL - Atypi cals w/ GC/CH : 5 mL - Cytol ogy PLUS FISH: 50 mL - Urine Cultu re: 3 mL ----- ----- ----- ----- ----- ----- ----- ----- ----- ----- ----- ----- ----- ----- ---- This lab resul t is being provi ded to you and your provi beau at the same time in compl iance with the 21st Centu ry Cures Act. Your provi beau may not have had time to revie w and make recom menda tions based on the resul t. Cheryle bardales allow up to one week for provi beau revie w. Not Available [facility] [address] [facility] [address], [place], [address], 08/21/2022 11:02:23 08/22/1908/21/2022 UA MICRO SCOPI C U-WBC 25 - 50 [hpf] 0 - 2 abnormal Not Available [facility] [address] [facility] [address], [place], [address], 08/21/2022 11:02:26 08/22/19 23 08/21/2022 UA MICRO SCOPI C U-RBC 10 - 25 [hpf] 0 - 2 abnormal Not Available [facility] [address] [facility] [address], [place], [address], 08/21/2022 11:02:26 08/22/19 23 08/21/2022 UA MICRO SCOPI C bacteria Small [hpf] negati ve abnormal Not Available [facility] [address] [facility] [address], [place], [address], 08/21/2022 11:02:26 08/22/19 23 08/21/2022 UA MICRO SCOPI C squamous epi Small /lpf negati ve,sma ll This lab resul t is being provi ded to you and your provi beau at the same time in compl iance with the Centu ry Cures Act. Your provi beau may not have had time to revie w and make recom menda tions based on the resul t. Cheryle e allow up to one week for provi beau revie w. Not Available [facility] [address] [facility] [address], [place], [address], 08/21/2022 11:02:26 08/22/19 23 08/21/2022 URINE CULTU RE final report MICROB IOLOGY RESULT S SOURC E Void KNOWN ALLER LAURA Vazquez lexin TREAT MENT none MEDIA PLATE D AT: Media plate d on 2022 @ 1:45 PM RESUL T No Growt h This lab resul t is being provi ded to you and your provi beau at the same time in compl iance with the Centu ry Cures Act. Your provi beau may not have had time to revie w and make recom menda tions based on the resul t. Cheryle e allow up to one week for provi beau revie w. Not Available [facility] [address] [facility] [address], [place], [address], 08/23/2022 11:17:53 11/01/19 23 10/31/2022 UA WITHO UT MICRO - CS URISC AN blood - uriscan NEGATI VE negati ve Not Available [facility] [address] [place] [address] [address], [place], [address], 10/31/2022 11:47:58 11/01/19 23 10/31/2022 UA WITHO UT MICRO - CS URISC AN bilirubin - uriscan NEGATI VE mg/dL negati ve Not Available [facility] [address] [place] [address] [address], [place], [address], 10/31/2022 11:47:58 11/01/19 23 10/31/2022 UA WITHO UT MICRO - CS URISC AN urobilinogen - uriscan NORMAL mg/dL normal Not Available [facility] [address] [place] [address] [address], [place], [address], 10/31/2022 11:47:58 11/01/19 23 10/31/2022 UA WITHO UT MICRO - CS URISC AN ketones - uriscan NEGATI VE mg/dL negati ve Not Available [facility] [address] [place] [address] [address], [place], [address], 10/31/2022 11:47:58 11/01/19 23 10/31/2022 UA WITHO UT MICRO - CS URISC AN protein - uriscan NEGATI VE mg/dL negati ve Not Available [facility] [address] [place] [address] [address], [place], [address], 10/31/2022 11:47:58 11/01/19 23 10/31/2022 UA WITHO UT MICRO - CS URISC AN nitrites - uriscan NEGATI VE negati ve Not Available [facility] [address] [place] [address] [address], [place], [address], 10/31/2022 11:47:58 11/01/19 23 10/31/2022 UA WITHO UT MICRO - CS URISC AN glucose - uriscan NEGATI VE mg/dL negati ve Not Available [facility] [address] [place] [address] [address], [place], [address], 10/31/2022 11:47:58 11/01/19 23 10/31/2022 UA WITHO UT MICRO - CS URISC AN pH - uriscan 6.50 5.00-9 .00 Not Available [facility] [address] [place] [address] [address], [place], [address], 10/31/2022 11:47:58 11/01/19 23 10/31/2022 UA WITHO UT MICRO - CS URISC AN sp. gravity - uriscan 1.02 1.01-1 .03 Not Available [facility] [address] [place] [address] [address], [place], [address], 10/31/2022 11:47:58 11/01/19 23 10/31/2022 UA WITHO UT MICRO - CS URISC AN leukocytes - uriscan NEGATI VE negati ve Not Available [facility] [address] [place] [address] [address], [place], [address], 10/31/2022 11:47:58 11/01/19 23 10/31/2022 UA WITHO UT MICRO - CS URISC AN color - uriscan YELLOW lt. yellow ;yello w Not Available [facility] [address] [place] [address] [address], [place], [address], 10/31/2022 11:47:58 11/01/1910/31/2022 UA WITHO UT MICRO - CS URISC AN clarity - uriscan CLEAR clear Not Available [facility] [address] [place] [address] [address], [place], [address], 10/31/2022 11:47:58 11/01/19 23 10/31/2022 UA WITHO UT MICRO - CS URISC AN total urine volume (mL) 60 /mL ----- ----- ----- ----- ----- ----- ----- ----- ----- ----- ----- ----- ----- ----- ---- *Vj kay note the follo wing minim um quant ities for addit ional urine testi ng: - Atypi cals: 3 mL - Cytol ogy: 20 mL - GC/CH : 2 mL - FISH: 30 mL - Atypi cals w/ GC/CH : 5 mL - Cytol ogy PLUS FISH: 50 mL - Urine Cultu re: 3 mL ----- ----- ----- ----- ----- ----- ----- ----- ----- ----- ----- ----- ----- ----- ---- This lab resul t is being provi ded to you and your provi beau at the same time in compl iance with the Centu ry Cures Act. Your provi beau may not have had time to revie w and make recom menda tions based on the resul t. Cehryle bardales allow up to one week for provi beau revie w. Not Available [facility] [address] [facility] [address], [place], [address], 10/31/2022 11:47:58 01/07/2001/06/2023 UA WITHO UT MICRO - CS URISC AN blood - uriscan NEGATI VE negati ve Not Available [facility] [address] [facility] [address], [place], [address], 01/06/2023 16:12:30 01/07/20 23 01/06/2023 UA WITHO UT MICRO - CS URISC AN bilirubin - uriscan NEGATI VE mg/dL negati ve Not Available [facility] [address] [facility] [address], [place], [address], 01/06/2023 16:12:30 01/07/20 23 01/06/2023 UA WITHO UT MICRO - CS URISC AN urobilinogen - uriscan NORMAL mg/dL normal Not Available [facility] [address] [facility] [address], [place], [address], 01/06/2023 16:12:30 01/07/20 23 01/06/2023 UA WITHO UT MICRO - CS URISC AN ketones - uriscan NEGATI VE mg/dL negati ve Not Available [facility] [address] [place] [address] [address], [place], [address], 01/06/2023 16:12:30 01/07/2001/06/2023 UA WITHO UT MICRO - CS URISC AN protein - uriscan NEGATI VE mg/dL negati ve Not Available [facility] [address] [place] [address] [address], [place], [address], 01/06/2023 16:12:30 01/07/20 23 01/06/2023 UA WITHO UT MICRO - CS URISC AN nitrites - uriscan NEGATI VE negati ve Not Available [facility] [address] [place] [address] [address], [place], [address], 01/06/2023 16:12:30 01/07/20 23 01/06/2023 UA WITHO UT MICRO - CS URISC AN glucose - uriscan NEGATI VE mg/dL negati ve Not Available [facility] [address] [place] [address] [address], [place], [address], 01/06/2023 16:12:30 01/07/20 23 01/06/2023 UA WITHO UT MICRO - CS URISC AN pH - uriscan 5.50 5.00-9 .00 Not Available [facility] [address] [place] [address] [address], [place], [address], 01/06/2023 16:12:30 01/07/20 23 01/06/2023 UA WITHO UT MICRO - CS URISC AN sp. gravity - uriscan 1.01 1.01-1 .03 Not Available [facility] [address] [facility] [address], [place], [address], 01/06/2023 16:12:30 01/07/20 23 01/06/2023 UA WITHO UT MICRO - CS URISC AN leukocytes - uriscan NEGATI VE negati ve Not Available [facility] [address] [place] [address] [address], [place], [address], 01/06/2023 16:12:30 01/07/20 23 01/06/2023 UA WITHO UT MICRO - CS URISC AN color - uriscan YELLOW lt. yellow ;yello w Not Available [facility] [address] [place] [address] [address], [place], [address], 01/06/2023 16:12:30 01/07/20 23 01/06/2023 UA WITHO UT MICRO - CS URISC AN clarity - uriscan CLEAR clear Not Available [facility] [address] [facility] [address], [place], [address], 01/06/2023 16:12:30 01/07/20 23 01/06/2023 UA WITHO UT MICRO - CS URISC AN total urine volume (mL) 40 /mL ----- ----- ----- ----- ----- ----- ----- ----- ----- ----- ----- ----- ----- ----- ---- *Plea se note the follo wing minim um quant ities for addit ional urine testi ng: - Atypi cals: 3 mL - Cytol ogy: 20 mL - GC/CH : 2 mL - FISH: 30 mL - Atypi cals w/ GC/CH : 5 mL - Cytol ogy PLUS FISH: 50 mL - Urine Cultu re: 3 mL ----- ----- ----- ----- ----- ----- ----- ----- ----- ----- ----- ----- ----- ----- ---- This lab resul t is being provi ded to you and your provi beau at the same time in compl iance with the Centu ry Cures Act. Your provi beau may not have had time to revie w and make recom menda tions based on the resul t. Cheryle bardales allow up to one week for provi beau revie w. Not Available [facility] [address] [facility] [address], [place], [address], 01/06/2023 16:12:30 Result Notes Documentation Provider Name and Address Organization Details Recorded Time Urinalysis, Dipstick : General Interpretation OLVIN Ramirez [address] [facility], [place], [address], [facility] 10/31/2022 11:52:04 Problems Name Problem SNOMED Code Status Onset Date Resolution Date Notes Provider Name and Address Organization Details Recorded Time Finding of desire for urination 668194808 Active 2018 R39.15 : Finding of desire for urination Not Available [facility] 0 23:50:22 Increased frequency of urination 693870436 Active 2018 R35.0 : Increased frequency of urination Not Available [facility] 0 23:50:22 Juan hematuria 699854426 Active 2018 R31.0 : Juan hematuria Not Available [facility] 0 23:50:22 Warfarin therapy Active 2022 Alka morales [facility] 3 10:22:20 Problem Notes None recorded. Procedures Surgical History Date Name Laterality Status Provider Name and Address Organization Details Recorded Time 01/07/20 23 Bladder Scan completed Alka Marte [facility] 01/06/2023 15:48:36 11/01/19 23 Bladder Scan completed Alka Marte [facility] 10/31/2022 10:56:38 08/22/19 23 Urine Culture completed Gareth Vyas [facility] 08/21/2022 10:46:20 08/22/19 23 Urinalysis completed Gareth Vyas [facility] 08/21/2022 10:48:48 08/01/19 23 SH Rezum Procedure completed Theodore Hercules MD [address] [facility],[address], [place], [address], [place] [facility] 07/31/2022 12:46:27 11/21/19 22 Bladder Scan completed Solomon Ayon [facility] 11/20/2021 09:17:56 11/21/19 22 Blood Draw/CAGE SHIFT MANAGER/PSA RESULTS completed Lyndsey Watkins [facility] 11/20/2021 09:38:35 09/23/19 19 Us urine capacity measure completed Not Available [facility] 11/17/2021 19:09:55 09/23/19 19 Cystoscopy completed Not Available [facility] 11/17/2021 19:09:55 09/08/19 19 Us urine capacity measure completed Not Available [facility] 11/17/2021 19:09:55 04/09/19 18 Prp i/sarah init reduc >5 yr completed Not Available [facility] Note 11/17/2021 19:09:55 12/24/19 15 Colonoscopy thru stoma spx completed Not Available [facility] 11/17/2021 19:09:55 Hernia repair w/mesh completed Not Available [facility] Note 11/17/2021 19:09:55 Removal of sperm duct(s) completed Not Available [facility] Note 11/17/2021 19:09:55 Imaging Results None recorded. Procedure Notes None recorded. Medical Equipment None Reported. Allergies Allergen ID Allergen Name Allergen Category Reaction Reaction Severity Criticality Documentation Date Start Date Code Code System Note Provider Name and Address Organization Details Recorded Time [id number] cephalexi n medicatio n Not available Not available Not available 09/14/20192230 RxNorm fever , red spots Not Available [facility] 0 23:57:14 Medications Name Sig Start Date Stop Date Status Note LastModified by Organization Details LastModified Time levothyro xine 175 mcg tablet TAKE 1 TABLET (175 MCG) ORALLY EVERY OTHER DAY ALTERNAT E EVERY OTHER DAY WITH 150MCG. active Not Available Not Available No t Available clindamyc in HCl 300 mg capsule TAKE 1 CAPSULE BY MOUTH THREE TIMES A DAY active Not Available Not Available No t Available atorvasta tin 10 mg tablet TAKE 1 TABLET BY MOUTH DAILY AT BEDTIME active Not Available Not Available No t Available warfarin 10 mg tablet TAKE 1 TABLET BY MOUTH EVERY DAY active Not Available Not Available No t Available phenazopy ridine 200 mg tablet TAKE 1 TABLET BY MOUTH THREE TIMES A DAY FOR 5 DAYS active Not Available Not Available No t Available prednison e 20 mg tablet TAKE 1 TABLET BY MOUTH TWICE A DAY 07/31 completed Not Available Not Available Not Available amlodipin e 5 mg tablet TAKE 1 TABLET BY MOUTH EVERY DAY active Not Available Not Available No t Available ciproflox acin 500 mg tablet Take 1 tablet twice a day by oral route for 3 days. 10/31 completed HN: Patient reports no longer taking Not Available Not Available Not Available triamcino lone acetonide 0.1 % topical cream APPLY TOPICALL Y TWICE A DAY active Not Available Not Available No t Available tamsulosi n 0.4 mg capsule TAKE 1 CAPSULE BY MOUTH EVERY DAY active Not Available Not Available No t Available levothyro xine 150 mcg tablet 150 MCG ORALLY EVERY OTHER DAYS ALTERNAT E EVERY OTHER DAY WITH 177 MCG DOSAGE. active Not Available Not Available No t Available oxybutyni n chloride ER 5 mg tablet,ex tended release 24 hr TAKE 1 TABLET BY MOUTH EVERY DAY active Not Available Not Available No t Available budesonid e 0.5 mg/2 mL suspensio n for nebulizat ion 0.5mg/2m l 2/day active Not Available Not Available No t Available metoprolo l succinate ER 25 mg tablet,ex tended release 24 hr TAKE 1 TABLET BY MOUTH EVERY DAY active Not Available Not Available No t Available diazepam 5 mg tablet TAKE 1 TABLET BY MOUTH NEEDED (1 HR PRIOR TO REZUM PROCEDUR E) 10/31 completed HN: Patient reports no longer taking Not Available Not Available Not Available amlodipin e 10 mg-atorva statin 10 mg tablet 10mg/10m g 1/day 07/31 completed Not Available Not Available Not Available nitrofura ntoin monohydra te/macroc rystals 100 mg capsule TAKE 1 CAPSULE BY MOUTH TWICE A DAY FOR 3 DAYS 10/31 completed HN: Patient reports no longer taking Not Available Not Available Not Available trospium 20 mg tablet TAKE 1 TABLET BY MOUTH TWICE A DAY 2023 active Not Available Not Available Not Avai lable levothyro xine 175mcg 1/day 07/31 completed Not Available Not Available Not Available clindamyc in-tretin oin 300 mg 3/day active Not Available Not Available No t Available Vitals Date Recorded Body height Body mass index (BMI) Body weight Provider Name and Address Organization Details Last Updated DateTime 07/31/2022 182.88 cm 31.9 kg/m2 [id number] ronny Radha Monroy [facility] 07/31/2022 12:05:09 Date Recorded Body weight Provider Name an d Address Organization Details Last Updated DateTime 10/31/2022 82320.21 ronny Alka Estuardo [facility] 10/31/2022 10:48:46 Date Recorded Body height Body mass index (BMI) Provider Name and Address Organization Details Last Updated DateTime 10/31/2022 182.88 cm 28.2 kg/m2 Not Available Health Note 10:46:29 Date Recorded Body height Body mass index (BMI) Body weight Provider Name and Address Organization Details Last Updated DateTime 01/06/2023 182.88 cm 28.2 kg/m2 27934.21 ronny Alkalea Fergusonram [facility] 01/06/2023 15:41:54 Date Recorded Body height Body mass index (BMI) Body weight Provider Name and Address Organization Details Last Updated DateTime 07/15/2023 182.88 cm 28.2 kg/m2 26225.21 ronny Alka Estuardo [facility] 07/15/2023 16:11:19 Social History Question Answer Notes LastModified by Organizat ion Details LastModified Time Tobacco Smoking Status Never Smoker Not Available Health Note 07/12/2023 10:17:18 What Is Your Level Of Alcohol Consumption? Occasional [email or web address] Information not available 07/12/2023 What Is Your Level Of Caffeine Consumption? Moderate [email or web address] Information not available 07/12/2023 How Much Tobacco Do You Chew? None [email or web address] Information not available 07/12/2023 Are You Currently Employed? No Information not available 10/31/2022 Do You Or Have You Ever Used E-cigarettes Or Vape? Never Used Electronic Cigarettes [email or web address] Information not available 07/12/2023 Race White Information n ot available 09/15/2019 Ethnicity Not /Latin o Information not available 10/31/2022 Preferred Language Italian Information not available 10/31/2022 Recreational Drug Use No Information not available 10/31/2022 Could You Be ? No Information not available 10/31/2022 Marital Status Informati on not available 09/15/2019 What Was The Date Of Your Most Recent Tobacco Screening? 07/15/2023 [email or web address] Information not available 07/12/2023 Have You Ever Been Counseled For Unhealthy Alcohol Use? No Information not available 01/06/2023 What Is Your Relationship Status? [email or web address] Information not available 10/27/2022 Are You Sexually Active? Yes [email or web address] Information not available 07/12/2023 Do You Or Have You Ever Used Smokeless Tobacco? Never Used Smokeless Tobacco [email or web address] Information not available 07/12/2023 Do You Use Any Illicit Or Recreational Drugs? No [email or web address] Information not available 07/12/2023 Has Tobacco Cessation Counseling Been Provided? Yes Information not available 01/06/2023 On What Date Was Tobacco Cessation Counseling Provided? 07/15/2023 Information not available 07/15/2023 Do You Or Have You Ever Used Any Other Forms Of Tobacco Or Nicotine? No [email or web address] Information not available 11/20/2021 How Many Days In The Past Year Have You Consumed 5 Or More Drinks? 0 Information no t available 07/15/2023 Sex: Unknown Functional Status None recorded. Mental Status None recorded. Family History Relationship Description Onset Age of this Age Resolved Age Notes LastModified by Organization Details LastModified Time Mother Family history of cancer of colon [email or web address] Not available 2021 19:09:54 Father Family history of malignant neoplasm of prostate 45 [email or web address] Not available 2021 19:09:54 Notes:parkinsons:Father He art disease:Runs in Family Cancer, colon:Mother Cancer, prostate:Father Medical History Condition Response Diabetes N Sexually Transmitted Infection N Bleeding Disorder N High Blood Pressure Y Kidney Stones N Cancer N Lung Disease N Depression N High Cholesterol Y GERD/Acid Reflux N Heart Disease N Immunizations Vaccine Type Date Status Provider Name and Address Organization Details Recorded Time SARS-COV-2 (COVID-19) vaccine, UNSPECIFIED 05/03/2023 completed Not Available Health Note 07/12/2023 10:17:21 zoster live 05/03/2023 completed Alka Estuardo null, [facility] 07/15/2023 16:11:10 influenza, unspecified formulation 05/03/2023 completed Not Available Health Note 07/12/2023 10:17:21 Influenza, MDCK, quadrivalent, PF 11/27/2021 completed Alka Lenox null, [facility] 07/15/2023 16:11:10 zoster recombinant 05/05/2023 completed Alka Be rtram null, [facility] 07/15/2023 16:11:10 zoster recombinant 01/29/2023 completed Alka Be rtram null, [facility] 07/15/2023 16:11:10 COVID-19, mRNA, LNP-S, bivalent, PF, 50 mcg/0.5 mL or 25mcg/0.25 mL dose 01/28/2022 completed Alka Lenox null, [facility] 07/15/2023 16:11:10 RSV, recombinant, protein subunit RSVpreF, adjuvant reconstituted, 0.5 mL, PF 03/09/2023 completed Alka Estuardo null, [facility] 07/15/2023 16:11:10 COVID-19, mRNA, LNP-S, PF, 50 mcg/0.5 mL 03/09/2023 completed Alka Lenox null, [facility] 07/15/2023 16:11:10 Influenza, split virus, quadrivalent, PF 01/29/2023 completed Alka Estuardo null, [facility] 07/15/2023 16:11:10 SARS-COV-2 (COVID-19) vaccine, UNSPECIFIED 07/19/2021 [facility] 16:11:10 influenza, unspecified formulation 02/04/2021 completed Alka Lenox null, [facility] 01/06/2023 15:41:58 COVID-19, mRNA, LNP-S, PF, 100 mcg/0.5mL dose or 50 mcg/0.25mL dose 08/07/2021 completed Radha morales, [facility] 07/31/2022 12:05:19 COVID-19, mRNA, LNP-S, PF, 30 mcg/0.3 mL dose 06/23/2020 [facility] 12:05:19 COVID-19, mRNA, LNP-S, PF, 30 mcg/0.3 mL dose 07/14/2020 [facility] 12:05:19 COVID-19, mRNA, LNP-S, PF, 30 mcg/0.3 mL dose 02/07/2021 [facility] 12:05:19 [facility]dap 10/12/2017 [facility] 12:05:19 Influenza, split virus, trivalent, PF 02/01/2017 [facility] 12:05:19 Td (adult), 2 Lf tetanus toxoid, preservative free, adsorbed 08/08/1998 [facility] 12:05:19 Influenza, split virus, quadrivalent, PF 01/16/2020 [facility] 12:05:19 Influenza, split virus, quadrivalent, PF 01/15/2021 [facility] 12:05:19 Influenza, split virus, quadrivalent, PF 01/27/2018 [facility] 12:05:19 Influenza, split virus, quadrivalent, PF 02/14/2019 [facility] 12:05:19 influenza, unspecified formulation 01/04/2022 completed SO Riojas [facility] 07/15/2023 16:11:10 SARS-COV-2 (COVID-19) vaccine, UNSPECIFIED 10/27/2021 completed SO Riojas [facility] 07/15/2023 16:11:10 Past Encounters Encounter ID Performer Location Encounter Start Date Encounter Closed Date Diagnosis/Indication Diagnosis SNOMED-CT Code Diagnosis ICD10 Code [id number] Lyndsey Watkins [facility] [address] [place] [address],[place] [place] [phone] 0 11/20/2021 09:02:46 11/20/2021 15:17:00 Lower urinary tract symptoms 329495086 R39.9 Screening for malignant neoplasm of prostate 877172635 Z12.5 [id number] Theodore Hercules MD [facility] [address] [place] [address] [place] [phone] 0 07/31/2022 11:17:03 07/31/2022 13:29:42 Lower urinary tract symptoms due to benign prostatic hypertrophy 7570033408 9101 N40.1 [id number] Gareth Vyas [facility] [address] [place] [address] [place] [address] [phone] 0 08/21/2022 10:42:40 08/21/2022 10:50:07 Increased frequency of urination 296710627 R35.0 [id number] OLVIN Francisco [facility] [address] [place] [address] [place] [address] [phone] 0 10/31/2022 10:45:43 10/31/2022 11:19:29 Overactive urinary bladder 425742195 N32.81 Increased frequency of urination 953423154 R35.0 [id number] OLVIN Francisco [facility] [address] [place] [address] [place] [address] [id number] 0 01/06/2023 15:39:08 01/06/2023 16:41:22 Increased frequency of urination 453767494 R35.0 Lower urin cuco tract symptoms due to benign prostatic hypertrophy 0994673883 9101 N40.1 [id number] [facility] [address] [facility],[address] [place] [phone] 07/15/2023 16:04:43 07/15/2023 16:56:21 Overactive urinary bladder 713851895 N32.81 Lower urin cuco tract symptoms due to benign prostatic hypertrophy 9590637625 9101 N40.1 Health Concerns Section Related Observation LastModified by Organization Detai ls LastModified Time None Recorded Concern Status LastModified by Organization Details LastModified Time None Recorded Advance Directives Directive None Recorded Payers Encounter Date Sequence Insurance Name Policy Number Policy Huang Covered Member ID Huang Member ID Guarantor Name 07/31/2022 1 [facility] [id number] Gavin Kaplan [id number] Gavin Kaplan 08/21/2022 1 [facility] [id number] Gavin Kaplan [id number] Gavin Kaplan 10/31/2022 1 [facility] [id number] Gavin Kaplan [id number] Gavin Kaplan 01/06/2023 1 [facility] [id number] Gavin Kaplan [id number] Gavin Kaplan 07/15/2023 1 [facility] Gavin Kaplan [id number] Gavin Kaplan Notes Date Note Type Note Provider Name and Address Organization Details Recorded Time 07/31/2022 text/html HPI Notes: This is a 60 year old male with benign prostatic hyperplasia with lower urinary tract symptoms here for the Rezum procedure. He has been struggling with worsening urgency and frequency for the last 5 years. This is particularly bothersome at night. He denies gross hematuria. There is no history of recurrent urinary tract infections. There is no history of urinary retention. He is currently taking tamsulosin 0.4 mg daily and saw [place]. He notices very mild benefit from this. He is here today for the Rezum procedure. He has a history of gross hematuria in 2018. He underwent an office cystoscopy with Dr. Nieto in 2018 which showed bilobar hyperplasia without an elevated bladder neck. Prostate volume: 40 mL. He is participating in prostate cancer screening. His most recent prostate specific antigen was 2.98 ng/mL (10/12/2017) Theodore Hercules MD [address] [place] [address],[address], [place], [phone], [facility] 07/31/2022 12:46:52 10/31/2022 text/html HPI Notes: This is a 60 year old male with benign prostatic hyperplasia with lower urinary tract symptoms who is now s/p the Rezum procedure. He has been struggling with worsening urgency and frequency for the last 5 years. This is particularly bothersome at night. He denies gross hematuria. There is no history of recurrent urinary tract infections. There is no history of urinary retention. He was taking tamsulosin 0.4 mg daily and saw [place]. He notices very mild benefit from this. He is now s/p the Rezum procedure. He states that his stream is stronger since his procedure, but he continues to struggle with urgency and frequency He has a history of gross hematuria in 2018. He underwent an office cystoscopy with Dr. Nieto in 2018 which showed bilobar hyperplasia without an elevated bladder neck. Prostate volume: 40 mL. He is participating in prostate cancer screening. His most recent prostate specific antigen was 2.98 ng/mL (10/12/2017) OLVIN Ramirez [address] [place] [address],[address], [place], [phone], [facility] 10/31/2022 11:18:50 01/06/2023 text/html HPI Notes: This is a 62 year old male with benign prostatic hyperplasia with lower urinary tract symptoms who is now s/p the Rezum procedure. He has been struggling with worsening urgency and frequency for the last 5 years. This is particularly bothersome at night. He denies gross hematuria. There is no history of recurrent urinary tract infections. There is no history of urinary retention. He was taking tamsulosin 0.4 mg daily and saw [place]. He notices very mild benefit from this. He is now s/p the Rezum procedure. He states that his stream is stronger since his procedure, but he continues to struggle with urgency and frequency He was started on oxybutynin at his last visit. He has noticed minimal benefit from this He discontinued his tamsulosin after his last visit, but noticed worsening symptoms. He would like to continue this He has a history of gross hematuria in 2018. He underwent an office cystoscopy with Dr. Nieto in 2018 which showed bilobar hyperplasia without an elevated bladder neck. Prostate volume: 40 mL. He is participating in prostate cancer screening. His most recent prostate specific antigen was 2.98 ng/mL (10/12/2017) OLVIN Ramirez [address] [place] [address],[address], [place], [phone], [facility] 01/06/2023 16:09:14 07/15/2023 text/html HPI Notes: This is a 62 year old male with benign prostatic hyperplasia with lower urinary tract symptoms who is now s/p the Rezum procedure with continued urinary complaints He is now s/p the Rezum procedure in July 2022 After his procedure, he noted improvement in his stream, but continued urgency and frequency He attempted to discontinue tamsulosin after his procedure, but his urinary symptoms worsened without this, so he resumed daily tamsulosin We discussed that this likely indicates some form of continued obstruction Recommended urocuff studies to determine if he was still obstructed, which he declines Started on oxybutynin for symptom relief, which was only mildly beneficial so he discontinued this Most recently he completed a course of pelvic floor PT, which was not beneficial He has a history of gross hematuria in 2018. He underwent an office cystoscopy with Dr. Niteo in 2018 which showed bilobar hyperplasia without an elevated bladder neck. Prostate volume: 40 mL. He is participating in prostate cancer screening. His most recent prostate specific antigen was 3.66 ng/mL (11/20/2021) OLVIN Ramirez [address] [place] [address],[address], [place], [phone], [facility] 07/15/2023 16:41:06
--- NOTE | 2024-02-16 09:00 | CRLHL7_ITS ---
For Patients: As a result of the Century Cures Act, medical imaging exams and procedure reports are released immediately into your electronic medical record. You may view this report before your referring provider. If you have questions, please contact your health care provider. Indication: COUGH AND LOW OXYGEN Technique: Noncontrast CT chest Please note that all CT scans at this facility use dose modulation, iterative reconstruction, and/or weight-based dosing when appropriate to reduce radiation dose to as low as reasonably achievable. Comparison: None Findings: Solid-appearing area within the inferior liver with distortion of the contour measures 2.1 cm, series 2, image 90, series 4, image 58. Gallbladder appears normal. Simple cyst in the left hepatic lobe measures 3.9 cm. Additional simple cyst left hepatic lobe measures 1.3 cm. Adrenal glands normal. No enlarged lymph nodes within the mediastinum, enrique or axilla. Visualized thyroid gland normal. Incidental intramuscular lipoma involving the left deltoid measures 2.6 cm. No vertebral body compression fracture. No fracture. The airways are clear. No mucous plugging. No pleural effusion or pulmonary edema. Linear densities within both lung bases. No air bronchograms. No pneumothorax. Incidental perifissural nodule left lower lobe measures 4.4 millimeters, 3/45. additional 6.9 millimeter nodule right lower lobe, 3/49. Impression: Linear subsegmental atelectasis within both lung bases. No pulmonary fibrosis or infiltrate. Bilateral pulmonary nodules measuring up to 6.9 millimeters. 1 year follow-up CT chest recommended. Indeterminate solid-appearing lesion arising from the inferior liver measuring 2.[address] liver with and without contrast recommended. Please note that all CT scans at this facility use dose modulation, iterative reconstruction, and/or weight-based dosing when appropriate to reduce radiation dose to as low as reasonably achievable. Dictated by Gavin Parks MD @ 02/16/2024 11:01:49 AM (Electronically Signed)
== END 2024-02-16 08:40 | disposition home or self-care (01) ==
LOC: CT 08:40
PROVIDERS: PCP Family Medicine; Visit Provider Family Medicine
DX: R05.9 Cough, unspecified (principal); R91.8 Other nonspecific abnormal finding of lung field; K76.9 Liver disease, unspecified
CPT/HCPCS: 71250

== ENCOUNTER 2024-02-23 09:00 | Outpatient (CLI) | payer OTHER, SELFPAY ==
--- NOTE | 2024-02-23 09:00 | CRLHL7_ITS ---
For Patients: As a result of the Century Cures Act, medical imaging exams and procedure reports are released immediately into your electronic medical record. You may view this report before your referring provider. If you have questions, please contact your health care provider. Indication: Liver lesion Technique: Pre and postcontrast CT abdomen performed. 144 cc Isovue intravenous contrast. Postcontrast images in the arterial, portal and delayed phase. Please note that all CT scans at this facility use dose modulation, iterative reconstruction, and/or weight-based dosing when appropriate to reduce radiation dose to as low as reasonably achievable. Comparison: CT chest 02/16/2024. Outside CT 09/17/2018 from [facility]. Findings: There is a similar nonenhancing mass arising from the inferior liver measuring 2.2 cm. Benign cysts are present elsewhere within the liver measuring up to 4.3 cm. Mild atelectasis within both lung bases. Normal adrenal glands and spleen. Unremarkable pancreas and gallbladder. Simple cyst arising from the lower pole of the left kidney measures 3.7 cm. No bowel obstruction. No fracture. Impression: No significant interval change in benign nonenhancing structure arising from the inferior liver measuring 2.2 cm. This is unchanged from 2019. No further evaluation indicated. Please note that all CT scans at this facility use dose modulation, iterative reconstruction, and/or weight-based dosing when appropriate to reduce radiation dose to as low as reasonably achievable. Dictated by Gavin Parks MD @ 02/23/2024 11:18:59 AM (Electronically Signed)
--- OUTSIDE RECORDS SUMMARY | 2024-02-23 09:04 | XMS_ITS | Clinical Summary ---
Author Organization [facility] Address [place], [place] [address] Care Team Providers Care Dive Superintendent Name Role Phone Gian Barron MD Primary Care Provider [phone] Allergies Active Allergy Reactions Criticality Noted Date [...] Type Department Care Team Description 01/05/2024 Telephone [facility] Centralized Nurse Triage Gian Barron MD Error-please [...] Sex Assigned at Male 03/15/2021 1:47 PM AUTOMOTIVE SERVICE TECHNICIAN Gender Identity Male 03/15/2021 1:47 PM AUTOMOTIVE SERVICE TECHNICIAN Sexual Orientation Straight 03/15/2021 1: 47 PM AUTOMOTIVE SERVICE TECHNICIAN Obstetrics History Last Filed Vital Signs Vital Sign Reading Time Taken Comments Blood Pressure 118/78 03/24/2023 10:18 AM AUTOMOTIVE SERVICE TECHNICIAN Pulse 71 03/24/2023 10:18 AM AUTOMOTIVE SERVICE TECHNICIAN Temperature - - Respiratory Rate - - Oxygen Saturation 95% 03/24/2023 10:18 AM AUTOMOTIVE SERVICE TECHNICIAN Inhaled Oxygen Concentration - - Weight 101.6 kg (224 lb) 03/24/2023 10:18 AM AUTOMOTIVE SERVICE TECHNICIAN Height 182.9 cm (6') 03/24/2023 10:18 AM AUTOMOTIVE SERVICE TECHNICIAN Body Mass Index 30.38 03/24/2023 10:18 AM AUTOMOTIVE SERVICE TECHNICIAN Plan of Treatment Upcoming Encounters Date Type Department Care Team (Late st Contact Info) Description 03/14/2024 11:00 AM AUTOMOTIVE SERVICE TECHNICIAN Ancillary Procedure [facility] [address] [place] [phone] 03/22/2024 10:00 AM AUTOMOTIVE SERVICE TECHNICIAN Office Visit [facility] [address] [place] [phone] Cesario Olguin MD [address] [place] [address] Health Maintenance Due Date Last Done [...] Associated Diagnosis Comments COLONOSCOPY 04/07/2019 10:56 AM AUTOMOTIVE SERVICE TECHNICIAN from Last 3 Months or Most Recently Relevant to Health Maintenance Results * COLONOSCOPY (04/07/2019 10:56 AM AUTOMOTIVE SERVICE TECHNICIAN) 04/07/2019 10:5 6 AM AUTOMOTIVE SERVICE TECHNICIAN Narrative Transcriptions Rohan Castrejon MD - 04/07/2019 [...] adequate candidate for conscious sedation. The [id number] was passed through the anus and advanced [...] 10:56 AM Procedure Code(s): --- Professional --- 52824, Colonoscopy, flexible; with removalof tumor(s), polyp(s), or other lesion(s) bysnare technique Diagnosis Code(s): --- Professional --- Z80.0, Family history of malignant neoplasmof digestive organs D12.2, Benign neoplasm of ascending colon CPT copyright 2018 [employer]. All rights reserved. The codes documented in this report are preliminary and upon gem setter reviewmay be revised to meet current compliance requirements. Scope In: 11:38:12 AM Scope Withdrawal Time 0 hours 9 minutes 54 seconds Scope Out: 11:51:18 AM Rohan Castrejon MD PROCEDURE ORD from Last 3 Months or Most Recently Relevant to Health Maintenance Care Teams Dive Superintendent Relationship Specialty Start Date End Date Gian Barron MD [id number] [place] [address] PCP - General Family Practice 01/05/24
--- OUTSIDE RECORDS SUMMARY | 2024-02-23 09:04 | XMS_ITS | Clinical Summary ---
Author Organization [facility] Address [address] [place] [address]. [place] [address] Care Team Providers Care Bankruptcy Processor Name Role Phone Gian Barron MD Primary Care Provider [phone] Zoë Pittman MD Unavailable [phone] Active Problems Problem Noted Date Diagnosed [...] st Contact Info) Description 04/26/2024 10:00 AM DREDGE PIPE OPERATOR Office Visit M [address] [place] [phone] Zoë Pittman MD [address] [place] [address], [address] [address] Health Maintenance Due Date Last [...] patient's age to complete this topic Insurance [id number] [place] [id number] [facility] Care Teams Bankruptcy Processor Relationship Specialty Start Date End Date Gian Barron MD [facility] [address] [address] PCP - General Family Medicine 01/08/23 Zoë Pittman MD [address], [address] [address] Allergy & Immunology 08/05/23
--- OUTSIDE RECORDS SUMMARY | 2024-02-23 09:04 | XMS_ITS | Referral Summary ---
Author Organization [facility] Address [address] [place] [address]. [place] [address] Care Team Providers Care Hydraulic Strainer Operator Name Role Phone Gian Barron MD Primary Care Provider [phone] Zoë Pittman MD Unavailable [phone] Active Problems Problem Noted Date Diagnosed [...] st Contact Info) Description 04/26/2024 10:00 AM LICENSED MENTAL HEALTH COUNSELOR Office Visit [address] [place] [phone] Zoë Pittman MD [address] [place] [id number] Insurance [id number] [place] [employer] Care Teams Hydraulic Strainer Operator Relationship Specialty Start Date End Date Gian Barron MD [facility] [address] [address] PCP - General Family Medicine 01/08/23 Zoë Pittman MD [address], [facility] [address] [place] [address] Allergy & Immunology 08/05/23
== END 2024-02-23 09:01 | disposition home or self-care (01) ==
LOC: CT 09:01
PROVIDERS: PCP Family Medicine; Visit Provider Family Medicine
DX: K76.9 Liver disease, unspecified (principal)
CPT/HCPCS: 74170; Q9967

== ENCOUNTER 2024-06-10 10:21 | Outpatient (CLI) | payer OTHER, SELFPAY ==
--- NOTE | 2024-06-10 12:17 | W.ANESCHARGE ---
Anesthesia Charges Start Date/Time Anesthesia Start Date: 06/10/24 Anesthesia Start Time: 11:42 Stop Date/Time Anesthesia Stop Date: 06/10/24 Anesthesia Stop Time: 12:10 Coding CPT Codes CPT Codes: ANES LWR INTST NDSC NOS - 33334 ([id number]) P2 - PATIENT W/MILD SYST DISEASE
--- NOTE | 2024-06-10 12:29 | W.ANESCHARGE ---
Anesthesia Charges Start Date/Time Anesthesia Start Date: 06/10/24 Anesthesia Start Time: 11:42 Stop Date/Time Anesthesia Stop Date: 06/10/24 Anesthesia Stop Time: 12:10 Coding CPT Codes CPT Codes: BHARAT LWR INTST NDSC NOS - 46904 ([id number]) P2 - PATIENT W/MILD SYST DISEASE, QK - CONCRETE PIPE PLANT SUPERVISOR 2-4 CNCRNT ANES PROC, QX - KST OPERATOR SVC W/ MD MED DIRECTION
== END 2024-06-10 10:22 | disposition home or self-care (01) ==
LOC: OP CLINIC 10:21
PROVIDERS: PCP Family Medicine; Visit Provider Internal Medicine Gastroenterology
DX: Z12.11 Encounter for screening for malignant neoplasm of colon (principal); D12.5 Benign neoplasm of sigmoid colon; K57.30 Diverticulosis of large intestine without perforation or abscess without bleeding; Z86.0101 Personal history of adenomatous and serrated colon polyps
CPT/HCPCS: 00811; 45385; 88305; J2704

== ENCOUNTER 2025-02-06 08:49 | Outpatient (CLI) | payer OTHER, SELFPAY | END 2025-02-06 08:50 | disposition home or self-care (01) | LOC: NFLDREF 02-09 11:30 | PROVIDERS: PCP Family Medicine; Referring Provider Family Medicine; Visit Provider Family Medicine | DX: E03.9 Hypothyroidism, unspecified (principal); E78.5 Hyperlipidemia, unspecified | CPT/HCPCS: 80053; 80061; 84443; G0103 ==

== ENCOUNTER 2025-02-21 10:44 | Outpatient (CLI) | payer OTHER, SELFPAY ==
--- NOTE | 2025-02-21 11:00 | CRLHL7_ITS ---
For Patients: As a result of the Century Cures Act, medical imaging exams and procedure reports are released immediately into your electronic medical record. You may view this report before your referring provider. If you have questions, please contact your health care provider. Indication: Other nonspecific abnormal finding of lung field Technique: Noncontrast CT chest Please note that all CT scans at this facility use dose modulation, iterative reconstruction, and/or weight-based dosing when appropriate to reduce radiation dose to as low as reasonably achievable. Comparison: 02/16/2024 Findings: Stable perifissural nodule left lower lobe measures 4.9 millimeters, 3/45. Stable nodule right lower lobe measures 7 millimeters, 3/50. Chronic reticular densities within both lower lobes consistent with subsegmental scarring no acute infiltrate or pulmonary edema. No pneumothorax. Visualized thyroid normal. No adenopathy. Heart size similar. Stable cysts within the liver. Stable lymph node in the central mesenteric fat measuring 1.9 cm. Stable benign lesion arising from the inferior right hepatic lobe. Impression: Stable bilateral pulmonary nodules. Stable scarring in both lung bases. Unchanged upper abdomen. Please note that all CT scans at this facility use dose modulation, iterative reconstruction, and/or weight-based dosing when appropriate to reduce radiation dose to as low as reasonably achievable. Dictated by Gavin Parks MD @ 02/21/2025 12:16:39 PM (Electronically Signed)
== END 2025-02-21 10:45 | disposition home or self-care (01) ==
PROVIDERS: PCP Family Medicine; Visit Provider Family Medicine
DX: R91.8 Other nonspecific abnormal finding of lung field (principal)
CPT/HCPCS: 71250